=== PATIENT | male | born 1980 | race Caucasian/White ===

== ENCOUNTER 2017-02-28 09:56 | Inpatient (IN) ==
[2017-02-28] MEDS ORDERED: 0.9 % Sodium Chloride 1,000 ML IVC ONE (09:58)
[2017-02-28] MEDS ORDERED: Ondansetron 4 MG/2 ML VIAL IVP ONE ×2 (09:58→10:48)
--- NOTE | 2017-02-28 10:02 | Emergency Department Note ---
Disposition Clinical Impression: Gastroparesis Nausea & vomiting Qualifiers: Vomiting type: unspecified Vomiting Intractability: unspecified Qualified Code( s): R11.2 - Nausea with vomiting, unspecified Disposition: Admitted As Inpatient Condition: Fair Referrals: Alvaro Sexton Jr, MD [Primary Care Provider] - Forms: ED Satisfaction Letter Time of Disposition: 12:11 Nausea/Vomiting/Diarrhea HPI - General Chief complaint: ED Nausea/Vomiting/Diarrhea Stated complaint: N/V Time Seen by Provider: 02/28/17 10:00 Source: patient, EMS Mode of arrival: EMS Limitations: no limitations Nursing Notes Reviewed: Yes Vital Signs Reviewed: Yes - History of Present Illness HPI Narrative: 36-year-old with a history of gastroparesis and diabetes comes in with nausea vomiting not able to keep anything down. Patient states he hasn't had episode like this for a while. Pt Subjective Complaint: nausea, vomiting Onset (ago): Just [employer] Description of emesis: food contents If pain, Location of pain: diffuse Severity: moderate Quality: cramping, aching Consistency: constant Improves with: nothing Worsens with: nonthing Associated symptoms: Denies: cough, fever/chills - Related Data Home Medications Medication Instructions Recorded Confirmed Coreg 01/15/17 Lantus 01/15/17 Losartan 01/15/17 Plavix 01/15/17 Allergies Allergy/AdvReac Type Severity Reaction Status Date / Time Damiblv-Bly-Pol Reductase Allergy Rash Verified 01/15/17 12:02 Inhibitor [Statins] All systems ED: reviewed and negative except as stated. Constitutional: Denies: fever, chills, weakness, weight change Eyes: Denies: eye pain, eye discharge, vision change ENT ED: Denies: ear pain, throat pain, dental pain, hearing loss, epistaxis, congestion, dysphagia Cardiovascular: Denies: chest pain, palpitations, dyspnea on exertion, edema, syncope Respiratory: Denies: cough, dyspnea, wheezes, hemoptysis, stridor Gastrointestinal: Reports: abdominal pain, nausea, vomiting. Denies: diarrhea, constipation, hematemesis, melena, hematochezia Genitourinary: Denies: urgency, dysuria, frequency, hematuria Musculoskeletal: Denies: back pain, neck pain, arthralgia, myalgia Integumentary: Denies: rash, abrasion, lesions Neurological: Denies: headache, weakness, numbness, paresthesias, confusion, abnormal gait, vertigo Psychiatric: Denies: anxiety, depression, suicidal thoughts, homicidal thoughts , auditory hallucinations, visual hallucinations Endocrine: Denies: fatigue Hematological/Lymphatic: Denies: easy bleeding, easy bruising Allergic/Immunologic: Denies: facial swelling, urticaria Past Medical History - Past Medical History Medical history: Reports: hypertension, other - Social History Smoking Status: Never smoker Smokeless Tobacco Status: No Alcohol use: Reports: none Physical Exam - General Limitations: no limitations - Head Head exam: atraumatic, normocephalic, normal inspection - Eye Eye exam: Present: normal appearance, PERRL, EOMI - ENT ENT exam: normal exam, normal oropharynx, mucous membranes moist - Neck Neck exam: Present: normal inspection, full ROM, trachea midline - Chest Chest inspection: Present: normal inspection, symmetric chest wall rise - Respiratory Respiratory exam: Present: normal lung sounds bilaterally - Cardiovascular Cardiovascular exam: Present: regular rate, normal rhythm, normal heart sounds - Abdominal Exam Abdominal exam: Present: soft, tenderness. Absent: guarding, rebound - Extremities Exam Extremities exam: Present: normal inspection, full ROM. Absent: tenderness, pedal edema - Expanded Lower Extremity Exam Neurovascular/Tendon exam: Absent: motor deficit, sensory deficit, tendon deficit Gait: observed and normal - Back Exam Back exam: Present: normal inspection, full ROM. Absent: tenderness - Neurological Exam Neurological exam: Present: alert, oriented X3 - Psychiatric Psychiatric exam: Present: normal affect, normal mood - Skin Skin exam: Present: warm, dry, intact, normal color Course - Reevaluation(s) Reevaluation #1: 76-year-old diabetic with gastroparesis comes in with nausea vomiting. Patient will be admitted for further evaluation and treatment. Time: 13:09 - Consultations Consultation #1: Discussed with , admit. Time: 13:09 Vital Signs Temperature 97.5 F L 02/28/17 09:59 Pulse Rate 96 02/28/17 09:59 Respiratory Rate 22 02/28/17 09:59 Blood Pressure 189/121 02/28/17 09:59 O2 Sat by Pulse Oximetry 96 02/28/17 09:59 Temperature 97.5 F L 02/28/17 09:59 Pulse Rate 108 02/28/17 12:49 Respiratory Rate 16 02/28/17 12:49 Blood Pressure 151/104 02/28/17 12:49 O2 Sat by Pulse Oximetry 100 02/28/17 12:49 Oxygen Delivery Oxygen Delivery Room Air Nausea/Vomiting/Diarrhea - Lab Data Lab results reviewed: Yes I reviewed the patient's lab results. Result diagrams: 02/28/17 10:09 02/28/17 10:09 Lab Results 02/28/17 02/28/17 02/28/17 Range/Units 10:09 10:09 11:45 WBC 17.8 H (4.3-11.1) K/mcL RBC 5.79 H (4.19-5.50) M/mcL Hgb 16.7 (12.9-16.9) g/dL Hct 48.7 (37.5-50.1) % MCV 84.1 (83.0-100.0) fL MCH 28.8 (28.0-33.3) pg MCHC 34.3 (31.6-35.5) g/dL RDW 11.6 (11.5-14.5) % Plt Count 433 H (140-400) K/mcL MPV 9.1 L (9.4-12.4) fL Immature Gran % 0.6 (0-4) % Seg Neutrophils % 86.6 % Lymphocytes % 9.3 % Monocytes % 3.3 % Eosinophils % 0.0 % Basophils % 0.2 % Neutrophils # 15.4 H (1.6-8.9) K/mcL Lymphocytes # 1.7 (0.6-4.6) K/mcL Monocytes # 0.6 (0.0-1.3) K/mcL Eosinophils # 0.0 (0.0-0.6) K/mcL Basophils # 0.0 (0.0-0.2) K/mcL Sodium 134 L (136-145) mEq/L Potassium 4.2 (3.5-4.5) mEq/L Chloride 92 L (98-109) mEq/L Carbon Dioxide 27 (19-29) mEq/L BUN 18 (8-26) mg/dL Creatinine 1.42 H (0.72-1.25) mg/dL Est GFR ( Amer) > 60 (> 60) Est GFR (Non-Af Amer) 56 L (> 60) BUN/Creatinine Ratio 13 (6-26) Glucose 323 H (70-99) mg/dL Calculated Osmolality 292 (280-300) Calcium 11.0 H (8.6-10.8) mg/dL Urine Color Yellow (Yellow) Urine Clarity Hazy (Clear) Urine pH 7.5 (5.0-8.0) pH Units Ur Specific Ashley 1.025 (1.010-1.025) Urine Protein 100 H (Neg-Trace) mg/dL Urine Glucose (UA) >=1000 H (Normal) mg/dL Urine Ketones 40 H (Negative) mg/dL Urine Blood Negative (Negative) Urine Nitrite Negative (Negative) Urine Bilirubin Negative (Negative) Urine Urobilinogen Normal (Normal) mg/dL Ur Leukocyte Esterase Negative (Negative) Urine Microscopic RBC 0-3 (0-3) per hpf Urine Microscopic WBC 0-3 (0-3) per hpf Ur Squamous Epith Cells Few (None-Few) per lpf Urine Bacteria None Seen (None-Few) per hpf Hyaline Casts None Seen (None-Few) per lpf Ur Culture Indicated? NO (NO) - Radiology Data Radiology results reviewed: Yes I reviewed the patient's radiology results. Abdomen/Pelvis CT 02/28/17 09:59 IMPRESSION: 1. Findings suggesting distal esophagitis, mild gastritis, and mild enteritis. No obstruction, perforation, or abscess. This could be infectious versus inflammatory in nature. 2. Bilateral nonobstructing nephrolithiasis. Nonspecific mild right pelvicaliectasis and ureteral distention which may be nonspecific versus possible recently passed calculus. 3. Vascular calcifications with no aortic aneurysm. D/ /28/2017 12:06:20 Mikael Maria MD / karely Interpreting Provider: Mikael Maria MD
[2017-02-28 10:17] LABS: Basophils % 0.2 %; Hematocrit 48.7 % (37.5-50.1); Hemoglobin 16.7 g/dL (12.9-16.9); Immature Granulocytes % 0.6 % (0-4); Lymphocytes # 1.7 K/mcL (0.6-4.6); Lymphocytes % 9.3 %; Mean Corpuscular HGB Conc 34.3 g/dL (31.6-35.5); Mean Corpuscular Hemoglobin 28.8 pg (28.0-33.3); Mean Corpuscular Volume 84.1 fL (83.0-100.0); Mean Platelet Volume 9.1 fL (9.4-12.4); Monocytes # 0.6 K/mcL (0.0-1.3); Monocytes % 3.3 %; Neutrophils # 15.4 K/mcL (1.6-8.9); Platelet Count 433 K/mcL (140-400); Red Blood Count 5.79 M/mcL (4.19-5.50); Red Cell Distribution Width 11.6 % (11.5-14.5); Segmented Neutrophils % 86.6 %
[2017-02-28 10:28] LABS: BUN/Creatinine Ratio 13 (6-26); Blood Urea Nitrogen 18 mg/dL (8-26); Carbon Dioxide 27 mEq/L (19-29); Chloride 92 mEq/L (98-109); Glucose 323 mg/dL (70-99); Osmolality,Calculated 292 (280-300); Potassium 4.2 mEq/L (3.5-4.5); Sodium 134 mEq/L (136-145); eGFR For African Americans > 60 (> 60); eGFR For Non-African Americans 56 (> 60)
[2017-02-28 11:53] LABS: Bilirubin,Urine Negative (Negative); Blood,Urine Negative (Negative); Color,Urine Yellow (Yellow); Glucose,Urine (UA) >=1000 mg/dL (Normal); Ketones,Urine 40 mg/dL (Negative); Leukocyte Esterase,Urine Negative (Negative); Nitrite,Urine Negative (Negative); PH,Urine 7.5 pH Units (5.0-8.0); Protein,Urine 100 mg/dL (Neg-Trace); Specific Gravity,Urine 1.025 (1.010-1.025); Urobilinogen,Urine Normal (Normal)
[2017-02-28 11:55] LABS: Bacteria,Urine None Seen per hpf (None-Few); Hyaline Casts,Urine None Seen per lpf (None-Few); RBC,Urine 0-3 per hpf (0-3); Squamous Epithelial Cell,Urine Few per lpf (None-Few); WBC,Urine 0-3 per hpf (0-3)
[2017-02-28 11:59] LABS: Clarity,Urine Hazy (Clear)
--- NOTE | 2017-02-28 13:49 | Internal Med History&Physical ---
Date of Encounter: 02/28/17 Time of Encounter: 13:11 Assessment and Plan (1) Nausea & vomiting Current visit: Yes Status: Acute Persistent nausea and vomiting in a young 36-year-old male who has a type 1 diabetes mellitus. Noted that patient has a hypochloremic hyponatremia. Elevated creatinine. Patient is hemoconcentrated. Plan: Admit as inpatient. Nothing by mouth. Intravenous normal saline 125 mL/h. Symptomatic treatment for nausea/vomiting. Blood culture. IV antibiotics in terms of ciprofloxacin/Flagyl. Close observation. The patient clinically was the then please consider to call surgery for further evaluation. Qualifiers: Vomiting type: unspecified Vomiting Intractability: unspecified Qualified Code(s): R11.2 - Nausea with vomiting, unspecified (2) Type 1 diabetes mellitus Current visit: Yes Status: Acute We will start the basal dose of insulin. We will give a correction dose in terms of her short-acting insulin. IV fluids for dehydration. Qualifiers: Diabetes mellitus complication status: with unspecified complications Qualified Code(s): E10.8 - Type 1 diabetes mellitus with unspecified complications (3) Gastroparesis Current visit: Yes Status: Acute Patient is advanced gastroparesis. We will keep a close eye on the patient's nausea/vomiting. (4) Hypertension Current visit: Yes Status: Acute Patient is known to have a high blood pressure. At this time I would like to hold or is not hypertensive. Qualifiers: Hypertension type: essential hypertension Qualified Code(s): I10 - Essential (primary) hypertension (5) DVT prophylaxis Current visit: Yes Status: Acute Hep[place]an Current decision making: This patient has a moderate to severe risk of worsening in spite of being on appropriate medication due to the underlying complex medical conditions. Internal Medicine - H&P: HPI Chief complaint: Nausea, vomiting Admitted From: Emergency Dept Plans for Post Hospital Care: Home History of present illness: PCP: Dr. Sexton. Brief PMH: Type 1 diabetes mellitus on insulin, hypertension, hyperlipidemia, gastroperesis. History of present medical illness: Patient is a multiple previous admissions in last 6 months. Today patient comes in with the worsening nausea and vomiting for the past 4 days. Patient has a persistent vomiting which is nonbilious and nonprojectile. Patient claims that he is not able to keep any fluid/solid food for the past 24 hours. Patient's mother is at bedside and she claims that patient is persistently vomiting to the extent that now he has only dry hives. Patient denies chest pain, shortness of breath, abdominal pain, or dizziness or diarrhea. In view of this persistent vomiting and nausea patient came to emergency room for further evaluation. Workup in the emergency room: Patient was evaluated in the emergency room. Basic labs were drawn. It appears as patient is hemoconcentrated. He has a hypochloremic hyponatremia which is suggestive of a dehydration. CT scan of the abdomen is suggestive of enteritis. Reason for admission: Persistent nausea/vomiting in the patient was a gastroparesis with severe dehydration, needs intravenous fluids 125 mL per hour. Family history: Noncontributory Past Med Surg Social Fam HX - Past Medical History Medical history: hypertension, other Psychiatric history: no psych history - Social History Smoking Status: Never smoker Smokeless Tobacco Status: No Alcohol use: none Drug use: marijuana Internal Medicine - H&P: Meds Carvedilol [Coreg] 25 mg PO BID 02/28/17 [History] Clopidogrel [Plavix] 75 mg PO DAILY 02/28/17 [History] Insulin Glargine,Hum.rec.anlog [Lantus Solostar] 8 unit SQ BID 02/28/17 [History ] Losartan Potassium [Cozaar] 100 mg PO DAILY 02/28/17 [History] amLODIPine [Norvasc] 5 mg PO DAILY 02/28/17 [History] 3 Allergy/AdvReac Type Severity Reaction Status Date / Time Jclezwy-Ofq-Pfn Reductase Allergy Rash Verified 01/15/17 12:02 Inhibitor [Statins] All Systems PM: A 10-system review of systems was performed and is negative for pertinent findings except as documented above in the HPI. - Constitutional Constitutional: no chills, no fever(s), no night sweats - EENT Eyes: no change in vision, no discharge, no pain, no photophobia Ears: no ear discharge, no ear pain, no tinnitus Nose, mouth and throat: no dysphagia, no nasal discharge, no neck pain, no sore throat - Cardiovascular Cardiovascular ROS IM: no chest pain, no diaphoresis, no dyspnea, no lightheadedness, no palpitations, no syncope - Respiratory Respiratory: no cough, no dyspnea, no wheezing, no excessive phlegm production - Gastrointestinal Gastrointestinal: bloating, nausea, no abdominal pain, no diarrhea, no hematemesis, no hematochezia, no melena, no vomiting Additional comments: Persistent vomiting - Musculoskeletal Musculoskeletal ROS IM: no numbness, no tingling - Integumentary Integumentary IM: no rash, no unusual bruising - Neurological Neurological ROS: no confusion, no convulsions, no focal weakness, no numbness, no tingling, no tremor(s) - Hematologic/Lymphatic Hematologic/Lymphatic: no easy bruising - Constitutional Vitals: Temp Pulse Resp BP Pulse Ox 97.5 F L 108 16 151/104 100 02/28/17 09:59 02/28/17 12:49 02/28/17 12:49 02/28/17 12:49 02/28/17 12:49 General appearance: Present: A&O X 3, pleasant, no acute distress, answers questions appropriately - Head Head exam: Present: atraumatic, normocephalic - Eye Eye exam: Present: PERRL, conjuntiva pink, sclera anicteric Pupils: Present: PERRL - Neck Neck exam general surgery: Present: supple, trachea midline. Absent: lymphadenopathy - Respiratory Respiratory exam: Present: CTAB. Absent: accessory muscle use, rales, rhonchi, wheezes - Cardiovascular Cardiovascular exam: Present: RRR, +S1, +S2. Absent: diastolic murmur, gallop, rubs, systolic murmur - GI/Abdominal GI/Abdominal exam: Present: normal bowel sounds, soft, no peritoneal signs. Absent: distended, tenderness - Extremities Exam Extremities exam: Present: warm, radial pulses palpable and symmetrical. Absent : calf tenderness, cyanotic, pedal edema - Neurological Exam Neurological exam: Present: CN II-XII intact, oriented X3, no focal deficits. Absent: pronater drift, facial droop, speech deficit - Skin Skin exam: Present: dry, intact Internal Med - H&P Results - Labs CBC & Chem 7: 02/28/17 10:09 02/28/17 10:09 Labs: Short CBC 02/28/17 Range/Units 10:09 WBC 17.8 H (4.3-11.1) K/mcL Hgb 16.7 (12.9-16.9) g/dL Hct 48.7 (37.5-50.1) % Plt Count 433 H (140-400) K/mcL Neutrophils # 15.4 H (1.6-8.9) K/mcL BMP 02/28/17 10:09 Sodium 134 L Potassium 4.2 Chloride 92 L Carbon Dioxide 27 BUN 18 Creatinine 1.42 H Glucose 323 H Calcium 11.0 H Urine 02/28/17 Range/Units 11:45 Urine Color Yellow (Yellow) Urine Clarity Hazy (Clear) Urine pH 7.5 (5.0-8.0) pH Units Ur Specific Adena 1.025 (1.010-1.025) Urine Protein 100 H (Neg-Trace) mg/dL Urine Glucose (UA) >=1000 H (Normal) mg/dL Results discussed with the emergency room physician. - Impressions ITS Impressions Abdomen/Pelvis CT 02/28/17 09:59 IMPRESSION: 1. Findings suggesting distal esophagitis, mild gastritis, and mild enteritis. No obstruction, perforation, or abscess. This could be infectious versus inflammatory in nature. 2. Bilateral nonobstructing nephrolithiasis. Nonspecific mild right pelvicaliectasis and ureteral distention which may be nonspecific versus possible recently passed calculus. 3. Vascular calcifications with no aortic aneurysm. D/ /28/2017 12:06:20 Mikael Maria MD / karely Interpreting Provider: Mikael Maria MD
[2017-02-28] MEDS ORDERED: Naloxone 0.4 MG/ML INJ IVP PRN (13:55)
[2017-02-28] MEDS ORDERED: D5% in Water 1,000 ML IVC PRN (13:58)
[2017-02-28] MEDS ORDERED: Dextrose Gel 15 GM PO PRN ×2 (13:58)
[2017-02-28] MEDS ORDERED: *HR* Dextrose 50 % in Water (Syg) 50 ML SYRINGE IVP PRN (13:58)
[2017-02-28] MEDS: Ondansetron 4 MG/2 ML VIAL IVP SCH ×2 (14:48→20:16)
[2017-02-28] MEDS: MetroNIDAZOLE 500 MG/100 ML 500 MG/100 ML BAG IVPB SCH (14:49)
[2017-02-28] MEDS: 0.9 % Sodium Chloride 1,000 ML IVC SCH (14:49)
[2017-02-28] MEDS: *HR* Heparin 5,000 UNIT/ML VIAL SQ SCH (14:55)
[2017-02-28] MEDS: *HR* Morphine 2 MG/ML SYRINGE IVP PRN ×2 (17:15→22:39)
[2017-02-28] MEDS: Insulin LISPRO 300 UNITS/3 ML VIAL SQ SCH (17:22)
[2017-02-28] MEDS: Acetaminophen 325 MG TABLET PO PRN (20:15)
[2017-02-28] MEDS: Insulin DETEMIR 100 UNIT/ML X5UNITS SQ SCH (20:16)
[2017-02-28] MEDS ORDERED: NON-FORMULARY MEDICATION 1 EACH EACH (Insulin Glargine,Hum.Rec.Anlog [Lantus Solostar] 8 U SQ SCH (21:00)
[2017-03-01] MEDS: Ondansetron 4 MG/2 ML VIAL IVP SCH ×7 (01:03→23:26)
[2017-03-01] MEDS: MetroNIDAZOLE 500 MG/100 ML 500 MG/100 ML BAG IVPB SCH ×4 (01:03→23:25)
[2017-03-01] MEDS: *HR* Heparin 5,000 UNIT/ML VIAL SQ SCH ×4 (01:06→23:26)
[2017-03-01] MEDS: *HR* Morphine 2 MG/ML SYRINGE IVP PRN ×4 (03:50→23:26)
[2017-03-01 05:27] LABS: Basophils % 0.1 %; Hematocrit 39.1 % (37.5-50.1); Lymphocytes # 1.3 K/mcL (0.6-4.6); Lymphocytes % 5.8 %; Mean Corpuscular HGB Conc 33.5 g/dL (31.6-35.5); Mean Corpuscular Volume 86.7 fL (83.0-100.0); Mean Platelet Volume 9.2 fL (9.4-12.4); Monocytes # 1.8 K/mcL (0.0-1.3); Monocytes % 8.3 %; Neutrophils # 18.5 K/mcL (1.6-8.9); Platelet Count 329 K/mcL (140-400); Red Blood Count 4.51 M/mcL (4.19-5.50); Red Cell Distribution Width 11.9 % (11.5-14.5); Segmented Neutrophils % 84.8 %
[2017-03-01 05:30] LABS: Hemoglobin 13.1 g/dL (12.9-16.9)
[2017-03-01 05:34] LABS: INR 1.1
[2017-03-01 05:37] LABS: Activated Partial Thrombo Time 28.4 Seconds (26.0-36.0)
[2017-03-01 05:43] LABS: Alanine Aminotransferase 16 Units/L (0-55); Albumin 3.2 g/dL (3.5-5.0); Albumin/Globulin Ratio 1.1 (1.1-2.2); Alkaline Phosphatase 85 Units/L (38-126); Aspartate Amino Transferase 13 Units/L (5-34); BUN/Creatinine Ratio 20 (6-26); Bilirubin,Total 0.4 mg/dL (0.2-1.2); Blood Urea Nitrogen 23 mg/dL (8-26); Calcium 8.8 mg/dL (8.6-10.8); Carbon Dioxide 27 mEq/L (19-29); Chloride 104 mEq/L (98-109); Chol/HDL Ratio 3.9 (0-4.9); Cholesterol 165 mg/dL (< 200); Glucose 154 mg/dL (70-99); HDL Cholesterol 42 mg/dL (40-59); LDL Cholesterol,Calculated 106 mg/dL (0-99); Magnesium 1.6 mg/dL (1.6-2.6); Osmolality,Calculated 289 (280-300); Phosphorous 3.4 mg/dL (2.3-4.7); Potassium 4.1 mEq/L (3.5-4.5); Sodium 136 mEq/L (136-145); Total Protein 6.2 g/dL (6.0-8.3); Triglycerides 86 mg/dL (< 150); eGFR For African Americans > 60 (> 60); eGFR For Non-African Americans > 60 (> 60)
[2017-03-01] MEDS ORDERED: GI Cocktail 40 ML EACH PO PRN (07:56)
[2017-03-01] MEDS: Insulin LISPRO 300 UNITS/3 ML VIAL SQ SCH ×3 (08:03→19:48)
[2017-03-01] MEDS: Insulin DETEMIR 100 UNIT/ML X5UNITS SQ SCH ×2 (09:10→20:40)
[2017-03-01] MEDS: Acetaminophen 325 MG TABLET PO PRN ×2 (12:14→20:39)
[2017-03-01] MEDS: Metoclopramide 10 MG/2 ML VIAL IVP SCH ×3 (12:14→23:26)
[2017-03-01] MEDS: Sucralfate 1 GM TABLET PO SCH ×3 (12:14→23:25)
--- NOTE | 2017-03-01 14:25 | Internal Med Progress Note ---
Date of Encounter: 03/01/17 Time of Encounter: 09:50 - Assessment and plan (1) Enteritis Current Visit: Yes Status: Acute Assessment and plan: Patient not having any diarrhea at this time. Treated empirically with antibiotics. Start clear liquids. Pain control. IV fluids. High risk for complications due to use of intravenous narcotic medications to control pain (2) Nausea & vomiting Current Visit: Yes Status: Acute Assessment and plan: Intractable. Most likely due to acute worsening of gastroparesis. Will place patient on Reglan at scheduled doses. Continue Carafate and will also add omeprazole Qualifiers: Vomiting type: cyclical vomiting Vomiting Intractability: intractable Qualified Code(s): G43.A1 - Cyclical vomiting, intractable (3) Gastroparesis Current Visit: Yes Status: Acute Assessment and plan: Will treat with Reglan (4) Type 1 diabetes mellitus Current Visit: Yes Status: Acute Assessment and plan: Improved blood sugars. Continue insulin coverage with Levemir and sliding scale Qualifiers: Diabetes mellitus complication status: with unspecified complications Qualified Code(s): E10.8 - Type 1 diabetes mellitus with unspecified complications (5) DVT prophylaxis Current Visit: Yes Status: Acute Assessment and plan: With subcutaneous heparin (6) Hypertension Current Visit: Yes Status: Chronic Assessment and plan: Uncontrolled. We will resume home medications. If persistently elevated, we will place patient on intravenous hydralazine as needed for systolic blood pressure greater than 160 Qualifiers: Hypertension type: essential hypertension Qualified Code(s): I10 - Essential (primary) hypertension - Subjective Interval history: Patient is lying in bed. Complains of continued nausea but it seems to be improving slowly. Wants to try liquid diet today. Denies any epigastric pain but does have some right upper quadrant pain this morning. Cramping type. No diarrhea. No hematochezia. - Constitutional Vitals: Temp Pulse Resp BP Pulse Ox 98.4 F 89 16 167/95 98 03/01/17 07:50 03/01/17 07:50 03/01/17 07:50 03/01/17 07:50 03/01/17 07:50 General appearance: Present: mild distress, A&O X 3, pleasant, answers questions appropriately - Respiratory Respiratory exam: Present: CTAB. Absent: accessory muscle use, rales, rhonchi, wheezes - Cardiovascular Cardiovascular exam: Present: RRR, +S1, +S2. Absent: diastolic murmur, gallop, rubs, systolic murmur - GI/Abdominal GI/Abdominal exam: Present: normal bowel sounds, soft, tenderness (Right upper and lower quadrants), no peritoneal signs. Absent: distended - Extremities Exam Extremities exam: Present: warm, radial pulses palpable and symmetrical. Absent : calf tenderness, cyanotic, pedal edema - Neurological Exam Neurological exam: Present: alert, oriented X3, no focal deficits. Absent: facial droop, speech deficit - Skin Skin exam: Present: dry, intact Internal Medicine: Result - Labs CBC & Chem 7: 03/01/17 05:08 03/01/17 05:08 Labs: Short CBC 03/01/17 Range/Units 05:08 WBC 21.8 H (4.3-11.1) K/mcL Hgb 13.1 D (12.9-16.9) g/dL Hct 39.1 (37.5-50.1) % Plt Count 329 (140-400) K/mcL Neutrophils # 18.5 H (1.6-8.9) K/mcL BMP 03/01/17 05:08 Sodium 136 Potassium 4.1 Chloride 104 Carbon Dioxide 27 BUN 23 Creatinine 1.13 Glucose 154 H Calcium 8.8 D Liver Function 03/01/17 Range/Units 05:08 Total Bilirubin 0.4 (0.2-1.2) mg/dL AST 13 (5-34) Units/L ALT 16 (0-55) Units/L Alkaline Phosphatase 85 (38-126) Units/L Albumin 3.2 L (3.5-5.0) g/dL - ABG Interpretation ABG results: PT/INR, D-dimer PT 12.0 Seconds (9.4-12.1) 03/01/17 05:08 Consult Discharge Plan - Plan Referrals: Alvaro Sexton Jr, MD [Primary Care Provider] -
--- NOTE | 2017-03-01 18:12 | Electrocardiograph Report ---
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
[2017-03-01] MEDS: 0.9 % Sodium Chloride 1,000 ML IVC SCH (19:48)
[2017-03-01] MEDS ORDERED: Insulin LISPRO 300 UNITS/3 ML VIAL SQ SCH (21:00)
[2017-03-02] MEDS: Ondansetron 4 MG/2 ML VIAL IVP SCH ×4 (03:27→16:42)
[2017-03-02] MEDS: Metoclopramide 10 MG/2 ML VIAL IVP SCH (05:07)
[2017-03-02] MEDS: *HR* Morphine 2 MG/ML SYRINGE IVP PRN (05:09)
[2017-03-02] MEDS: Insulin LISPRO 300 UNITS/3 ML VIAL SQ SCH ×2 (08:17→12:27)
[2017-03-02] MEDS: Acetaminophen 325 MG TABLET PO PRN ×2 (08:29→16:44)
[2017-03-02] MEDS: Sucralfate 1 GM TABLET PO SCH ×3 (08:29→16:44)
[2017-03-02] MEDS: Insulin DETEMIR 100 UNIT/ML X5UNITS SQ SCH (08:29)
[2017-03-02] MEDS: MetroNIDAZOLE 500 MG/100 ML 500 MG/100 ML BAG IVPB SCH ×2 (08:30→16:44)
[2017-03-02] MEDS: *HR* Heparin 5,000 UNIT/ML VIAL SQ SCH ×2 (08:30→18:08)
[2017-03-02] MEDS ORDERED: amLODIPine 5 MG TABLET PO SCH (09:00)
[2017-03-02 09:16] LABS: Basophils % 0.3 %; Eosinophils % 0.3 %; Hematocrit 39.7 % (37.5-50.1); Hemoglobin 13.1 g/dL (12.9-16.9); Immature Granulocytes % 0.6 % (0-4); Lymphocytes # 1.6 K/mcL (0.6-4.6); Lymphocytes % 12.7 %; Mean Platelet Volume 9.1 fL (9.4-12.4); Monocytes # 1.1 K/mcL (0.0-1.3); Monocytes % 8.2 %; Platelet Count 263 K/mcL (140-400); Red Blood Count 4.51 M/mcL (4.19-5.50); Red Cell Distribution Width 11.7 % (11.5-14.5); Segmented Neutrophils % 77.9 %
[2017-03-02 09:28] LABS: BUN/Creatinine Ratio 13 (6-26); Blood Urea Nitrogen 13 mg/dL (8-26); Calcium 8.8 mg/dL (8.6-10.8); Carbon Dioxide 28 mEq/L (19-29); Chloride 98 mEq/L (98-109); Glucose 143 mg/dL (70-99); Osmolality,Calculated 277 (280-300); Potassium 3.6 mEq/L (3.5-4.5); Sodium 132 mEq/L (136-145); eGFR For African Americans > 60 (> 60); eGFR For Non-African Americans > 60 (> 60)
[2017-03-02 12:16] VITALS: BP 138/86
--- NOTE | 2017-03-02 13:41 | Discharge Summary ---
Date of Encounter: 03/02/17 Time of Encounter: 13:36 - Discharge Diagnosis (1) Enteritis Priority: Primary Status: Acute (2) Nausea & vomiting Priority: Secondary Status: Acute Qualifiers: Vomiting type: cyclical vomiting Vomiting Intractability: intractable Qualified Code(s): G43.A1 - Cyclical vomiting, intractable (3) Gastroparesis Priority: Secondary Status: Acute (4) Type 1 diabetes mellitus Priority: Secondary Status: Acute Qualifiers: Diabetes mellitus complication status: with unspecified complications Qualified Code(s): E10.8 - Type 1 diabetes mellitus with unspecified complications (5) DVT prophylaxis Priority: Secondary Status: Acute (6) Hypertension Priority: Secondary Status: Chronic Qualifiers: Hypertension type: essential hypertension Qualified Code(s): I10 - Essential (primary) hypertension - Discharge Medications Prescriptions: Ciprofloxacin [Cipro] 500 mg PO BID #8 tablet Metoclopramide [Reglan] 10 mg PO QIDAC #40 tablet metroNIDAZOLE [Flagyl] 500 mg PO TID #12 tablet Pantoprazole Sodium 20 mg PO BID #60 tablet. Sucralfate [Carafate] 1 gm PO QIDAC #120 tablet Home Medications: Carvedilol [Coreg] 25 mg PO BID 02/28/17 [History] Clopidogrel [Plavix] 75 mg PO DAILY 02/28/17 [History] Insulin Glargine,Hum.rec.anlog [Lantus Solostar] 8 unit SQ BID 02/28/17 [History ] Losartan Potassium [Cozaar] 100 mg PO DAILY 02/28/17 [History] amLODIPine [Norvasc] 5 mg PO DAILY 02/28/17 [History] Ciprofloxacin [Cipro] 500 mg PO BID #8 tablet 03/02/17 [Rx] Metoclopramide [Reglan] 10 mg PO QIDAC #40 tablet 03/02/17 [Rx] Pantoprazole Sodium 20 mg PO BID #60 tablet. 03/02/17 [Rx] Sucralfate [Carafate] 1 gm PO QIDAC #120 tablet 03/02/17 [Rx] metroNIDAZOLE [Flagyl] 500 mg PO TID #12 tablet 03/02/17 [Rx] Allergies/Adverse Reactions: 3 Allergy/AdvReac Type Severity Reaction Status Date / Time Hmakxpe-Qco-Bqj Reductase Allergy Rash Verified 01/15/17 12:02 Inhibitor [Statins] Procedures/tests Complete & Pending: Procedures Performed prior 72 hours Category Date Time Status ECG 12 lead ECG [ECG] Routine Y 02/28/17 16:43 Completed Date of admission: 02/28/17 13:55 Primary care physician: Alvaro Sexton Jr, MD Discharging clinician: Cora Lerma Anticipated date of discharge: 03/02/17 - Patient Status Disposition: Home, Self-Care Condition: Good Functional capacity at discharge: independent ambulation Overall status at discharge: patient is progressing back to baseline - Discharge Instructions Instructions: Diabetes Mellitus Type 2 in Adults (DC) Follow Up With: Alvaro Sexton Jr, MD [Primary Care Provider] - (in 1-2 weeks) - Diet and Activity Activity: increase activity as tolerated Diet: diabetic diet, low fat, low cholesterol, low salt diet Hospital course: Mr. Santamaria is a 36 year old male patient with a history of type 1 diabetes mellitus and diabetic gastroparesis who presented to the ER with complaints of intractable nausea and vomiting. CT scan in the ER showed presence of distal esophagitis, mild gastritis and mild enteritis. Patient was started on treatment for this with PPI and Carafate along with intravenous antibiotics. For his diabetic gastroparesis, he was placed on Reglan. With these medications , his symptoms improved is now doing much better and is tolerating full liquids well. He is clinically stable for discharge home as long as he is able to continue to tolerate diet. He will be discharged on Reglan, pantoprazole and Carafate. He will follow-up with his primary care provider for further management. He will also complete a 5 day course of antibiotics. - Time Spent with Patient Total time spent providing and/or coordinating discharge services: Less than 30 minutes (35 min) - Constitutional Vitals: Temp Pulse Resp BP Pulse Ox 98.8 F 78 18 138/86 100 03/02/17 12:11 03/02/17 12:11 03/02/17 12:11 03/02/17 12:11 03/02/17 12:11 General appearance: Present: mild distress, A&O X 3, pleasant, answers questions appropriately - Neck Neck exam general surgery: Present: supple, trachea midline. Absent: lymphadenopathy - Respiratory Respiratory exam: Present: CTAB. Absent: accessory muscle use, rales, rhonchi, wheezes - Cardiovascular Cardiovascular exam: Present: RRR, +S1, +S2. Absent: diastolic murmur, gallop, rubs, systolic murmur - Neurological Exam Neurological exam: Present: alert, oriented X3, no focal deficits. Absent: facial droop, speech deficit
== END 2017-03-02 19:00 | disposition home or self-care (01) | DRG 392 ==
LOC: 3ANU 09:56 → EMEROO 09:56 → 3ANU 14:10
PROVIDERS: ADMIT Internal Medicine; ATTEND Internal Medicine

== ENCOUNTER 2018-01-14 09:08 | Inpatient (IN) ==
[2018-01-14] MEDS ORDERED: 0.9 % Sodium Chloride 1,000 ML IVC ONE (09:13)
[2018-01-14] MEDS ORDERED: Ondansetron 4 MG/2 ML VIAL IVP ONE (09:13)
[2018-01-14] MEDS ORDERED: Metoclopramide 10 MG/2 ML VIAL IVP ONE (09:15)
--- NOTE | 2018-01-14 09:19 | Emergency Department Note ---
Disposition Clinical Impression: Upper GI bleed, Severe anemia Hematemesis Qualifiers: Nausea presence: with nausea Qualified Code(s): K92.0 - Hematemesis Disposition: Admitted As Inpatient Condition: Fair Referrals: Alvaro Sexton Jr, MD [Primary Care Provider] - Forms: ED Satisfaction Letter Time of Disposition: 11:44 General Adult HPI - General Chief complaint: ED Nausea/Vomiting/Diarrhea Stated complaint: High Sugar Time Seen by Provider: 01/14/18 09:13 Source: patient, EMS Mode of arrival: EMS Limitations: no limitations - History of Present Illness HPI Narrative: This is a 37-year-old male who has a long-term diabetic who is been unable to control his blood sugar last few days. He is brought in by EMS because of that and because of vomiting. He states the vomiting began more than 12 hours prior to arrival, and that he has had 3 or 4 vomiting. He is vomiting on arrival. EMS squad states that he also appears quite pale compared to normal. He denies abdominal pain except during vomiting. He denies constipation or diarrhea. His emesis appears to be coffee ground, and EMS states that his said that he has emesis was dark. - Related Data Home Medications Medication Instructions Recorded Confirmed Carvedilol [Coreg] 25 mg PO BID 02/28/17 02/28/17 Clopidogrel [Plavix] 75 mg PO DAILY 02/28/17 02/28/17 Insulin Glargine,Hum.rec.anlog 8 unit SQ BID 02/28/17 02/28/17 [Lantus Solostar] Losartan Potassium [Cozaar] 100 mg PO DAILY 02/28/17 02/28/17 amLODIPine [Norvasc] 5 mg PO DAILY 02/28/17 02/28/17 Previous Rx's Medication Instructions Recorded Ciprofloxacin [Cipro] 500 mg PO BID #8 tablet 03/02/17 Metoclopramide [Reglan] 10 mg PO QIDAC #40 tablet 03/02/17 Pantoprazole Sodium 20 mg PO BID #60 tablet. 03/02/17 Sucralfate [Carafate] 1 gm PO QIDAC #120 tablet 03/02/17 metroNIDAZOLE [Flagyl] 500 mg PO TID #12 tablet 03/02/17 Allergies Allergy/AdvReac Type Severity Reaction Status Date / Time Fqtqenq-[id number]-Xpc Reductase Allergy Rash Verified 12/01/17 16:08 Inhibitor [Statins] All systems ED: reviewed and negative except as stated. Gastrointestinal: Reports: nausea, vomiting, hematemesis. Denies: diarrhea, constipation Past Medical History - Past Medical History Medical history: Reports: diabetes, hypertension, other Psychiatric history: Reports: no psych history - Social History Smoking Status: Never smoker Smokeless Tobacco Status: No Alcohol use: Reports: none Drug use: Reports: marijuana Physical Exam - General Limitations: no limitations General appearance: alert, in distress (In mild distress from vomiting) - Head Head exam: atraumatic, normocephalic, normal inspection - Eye Eye exam: Present: normal appearance - Chest Chest inspection: Present: normal inspection, symmetric chest wall rise - Respiratory Respiratory exam: Present: normal lung sounds bilaterally - Cardiovascular Cardiovascular exam: Present: normal rhythm, tachycardia, normal heart sounds - Abdominal Exam Abdominal exam: Present: soft, Non-Tender. Absent: tenderness, distention, guarding, rebound, rigidity - Neurological Exam Neurological exam: Present: alert, oriented X3 - Psychiatric Psychiatric exam: Present: normal affect, normal mood - Skin Skin exam: Present: warm, dry, intact, normal color Course Course Narrative: This is a pale 37-year-old male who appears to have hematemesis. Evaluation is concerning for upper GI bleed. Vital Signs Temperature 99.0 F 01/14/18 09:14 Pulse Rate 132 01/14/18 09:14 Respiratory Rate 18 01/14/18 09:14 Blood Pressure 122/100 01/14/18 09:14 O2 Sat by Pulse Oximetry 100 01/14/18 09:14 Temperature 99.4 F 01/14/18 11:40 Pulse Rate 105 01/14/18 11:40 Respiratory Rate 14 01/14/18 11:40 Blood Pressure 110/77 01/14/18 11:40 O2 Sat by Pulse Oximetry 100 01/14/18 11:26 Oxygen Delivery Oxygen Delivery Room Air Medical Decision Making - MDM Narrative Medical decision making narrative: This is a 29-year-old male nausea and vomiting apparently secondary to upper GI bleeding. The lab called to report a hemoglobin 5.1, which I immediately ordered 2 units of packed red blood cells. I discussed with the patient the option of receiving a blood transfusion, and he agreed. IV fluid was given because of tachycardia 10 units of insulin was given because of hyperglycemia, although there is no evidence of DKA given his normal bicarbonate I discussed his case with the on-call hospitalist, who accepted him for admission to the ICU - Lab Data Lab results reviewed: Yes I reviewed the patient's lab results. Lab results narrative: CBC shows leukocytosis at 17.2 with anemia at 5.114.9, normal platelets at 300 BMP showed hyponatremia at 129 with an elevated BUN of 39 and normal bicarbonate 24 Beta hydroxybutyrate was elevated at 0.96 Result diagrams: 01/14/18 09:31 01/14/18 09:31 Lab Results 01/14/18 01/14/18 01/14/18 Range/Units 09:31 09:31 09:31 WBC 17.2 H (4.3-11.1) K/mcL RBC 1.71 L (4.19-5.50) M/mcL Hgb 5.1 L* (12.9-16.9) g/dL Hct 14.9 L* (37.5-50.1) % MCV 87.1 (83.0-100.0) fL MCH 29.8 (28.0-33.3) pg MCHC 34.2 (31.6-35.5) g/dL RDW 12.2 (11.5-14.5) % Plt Count 300 (140-400) K/mcL MPV 9.8 (9.4-12.4) fL Immature Gran % 0.8 (0-4) % Seg Neutrophils % 81.8 % Lymphocytes % 13.1 % Monocytes % 4.0 % Eosinophils % 0.1 % Basophils % 0.2 % Neutrophils # 14.1 H (1.6-8.9) K/mcL Lymphocytes # 2.3 (0.6-4.6) K/mcL Monocytes # 0.7 (0.0-1.3) K/mcL Eosinophils # 0.0 (0.0-0.6) K/mcL Basophils # 0.0 (0.0-0.2) K/mcL Platelet Estimate Normal (Normal) Polychromasia 1+ A (Not Present) Poikilocytosis 1+ A (Not Present) Sodium 129 L (136-145) mEq/L Potassium 4.7 (3.5-5.1) mEq/L Chloride 98 (98-107) mEq/L Carbon Dioxide 24 (23-29) mEq/L BUN 39 H (6-20) mg/dL Creatinine 1.16 (0.70-1.30) mg/dL Est GFR ( Amer) > 60 (> 60) Est GFR (Non-Af Amer) > 60 (> 60) BUN/Creatinine Ratio 34 H (6-26) Glucose 451 H (70-105) mg/dL Calculated Osmolality 297 (280-300) Calcium 8.3 L (8.6-10.3) mg/dL Total Bilirubin 0.3 (0.3-1.0) mg/dL AST 12 L (13-39) Units/L ALT 11 (7-52) Units/L Alkaline Phosphatase 51 (34-104) Units/L Troponin I < 0.03 (< 0.04) ng/mL Serum Total Protein 5.1 L (6.4-8.9) g/dL Albumin 3.5 (3.5-5.7) g/dL Globulin 1.6 L (2.4-3.5) g/dL Albumin/Globulin Ratio 2.2 (1.1-2.2) Beta-Hydroxybutyric Acd 0.96 H (0.02-0.27) mmol/L Urine Color (Yellow) Urine Clarity (Clear) Urine pH (5.0-8.0) pH Units Ur Specific [place] (1.010-1.025) Urine Protein (Neg-Trace) mg/dL Urine Glucose (UA) (Normal) mg/dL Urine Ketones (Negative) mg/dL Urine Blood (Negative) Urine Nitrite (Negative) Urine Bilirubin (Negative) Urine Urobilinogen (Normal) mg/dL Ur Leukocyte Esterase (Negative) Urine Microscopic RBC (0-3) per hpf Urine Microscopic WBC (0-3) per hpf Ur Squamous Epith Cells (None-Few) per lpf Urine Bacteria (None-Few) per hpf Hyaline Casts (None-Few) per lpf Ur Culture Indicated? (NO) Blood Type Antibody Screen Crossmatch 01/14/18 01/14/18 Range/Units 09:31 10:37 WBC (4.3-11.1) K/mcL RBC (4.19-5.50) M/mcL Hgb (12.9-16.9) g/dL Hct (37.5-50.1) % MCV (83.0-100.0) fL MCH (28.0-33.3) pg MCHC (31.6-35.5) g/dL RDW (11.5-14.5) % Plt Count (140-400) K/mcL MPV (9.4-12.4) fL Immature Gran % (0-4) % Seg Neutrophils % % Lymphocytes % % Monocytes % % Eosinophils % % Basophils % % Neutrophils # (1.6-8.9) K/mcL Lymphocytes # (0.6-4.6) K/mcL Monocytes # (0.0-1.3) K/mcL Eosinophils # (0.0-0.6) K/mcL Basophils # (0.0-0.2) K/mcL Platelet Estimate (Normal) Polychromasia (Not Present) Poikilocytosis (Not Present) Sodium (136-145) mEq/L Potassium (3.5-5.1) mEq/L Chloride (98-107) mEq/L Carbon Dioxide (23-29) mEq/L BUN (6-20) mg/dL Creatinine (0.70-1.30) mg/dL Est GFR ( Amer) (> 60) Est GFR (Non-Af Amer) (> 60) BUN/Creatinine Ratio (6-26) Glucose (70-105) mg/dL Calculated Osmolality (280-300) Calcium (8.6-10.3) mg/dL Total Bilirubin (0.3-1.0) mg/dL AST (13-39) Units/L ALT (7-52) Units/L Alkaline Phosphatase (34-104) Units/L Troponin I (< 0.04) ng/mL Serum Total Protein (6.4-8.9) g/dL Albumin (3.5-5.7) g/dL Globulin (2.4-3.5) g/dL Albumin/Globulin Ratio (1.1-2.2) Beta-Hydroxybutyric Acd (0.02-0.27) mmol/L Urine Color Yellow (Yellow) Urine Clarity Clear (Clear) Urine pH 6.0 (5.0-8.0) pH Units Ur Specific [place] <= 1.005 L (1.010-1.025) Urine Protein Negative (Neg-Trace) mg/dL Urine Glucose (UA) 500 H (Normal) mg/dL Urine Ketones 15 H (Negative) mg/dL Urine Blood Small H (Negative) Urine Nitrite Negative (Negative) Urine Bilirubin Negative (Negative) Urine Urobilinogen Normal (Normal) mg/dL Ur Leukocyte Esterase Negative (Negative) Urine Microscopic RBC 0-3 (0-3) per hpf Urine Microscopic WBC 0-3 (0-3) per hpf Ur Squamous Epith Cells None Seen (None-Few) per lpf Urine Bacteria None Seen (None-Few) per hpf Hyaline Casts None Seen (None-Few) per lpf Ur Culture Indicated? NO (NO) Blood Type O POSITIVE Antibody Screen NEGATIVE Crossmatch See Detail - EKG Data EKG #1 EKG attestation: Yes I reviewed and interpreted this EKG. EKG results narrative: ECG showed sinus tachycardia, 115 bpm, normal intervals, normal axis and normal ST and T waves, similar to prior dated 12/01/2017 Critical Care Time Critical Care Time: Yes Total Critical Care Time: 30 Attestation: 20 minutes of critical care time was invested independent of separately billable procedures
[2018-01-14 09:44] LABS: Basophils % 0.2 %; Eosinophils % 0.1 %
[2018-01-14 09:52] LABS: Mean Corpuscular HGB Conc 34.2 g/dL (31.6-35.5); Mean Corpuscular Hemoglobin 29.8 pg (28.0-33.3); Mean Corpuscular Volume 87.1 fL (83.0-100.0); Red Blood Count 1.71 M/mcL (4.19-5.50)
[2018-01-14 09:54] LABS: Immature Granulocytes % 0.8 % (0-4); Lymphocytes # 2.3 K/mcL (0.6-4.6); Lymphocytes % 13.1 %; Mean Platelet Volume 9.8 fL (9.4-12.4); Monocytes # 0.7 K/mcL (0.0-1.3); Platelet Count 300 K/mcL (140-400); Red Cell Distribution Width 12.2 % (11.5-14.5); Segmented Neutrophils % 81.8 %
[2018-01-14 09:58] LABS: Alanine Aminotransferase 11 Units/L (7-52); Albumin 3.5 g/dL (3.5-5.7); Albumin/Globulin Ratio 2.2 (1.1-2.2); Alkaline Phosphatase 51 Units/L (34-104); Aspartate Amino Transferase 12 Units/L (13-39); BUN/Creatinine Ratio 34 (6-26); Bilirubin,Total 0.3 mg/dL (0.3-1.0); Blood Urea Nitrogen 39 mg/dL (6-20); Calcium 8.3 mg/dL (8.6-10.3); Carbon Dioxide 24 mEq/L (23-29); Chloride 98 mEq/L (98-107); Globulin 1.6 g/dL (2.4-3.5); Glucose 451 mg/dL (70-105); Osmolality,Calculated 297 (280-300); Potassium 4.7 mEq/L (3.5-5.1); Sodium 129 mEq/L (136-145); Total Protein 5.1 g/dL (6.4-8.9); eGFR For Non-African Americans > 60 (> 60)
[2018-01-14 10:00] LABS: Neutrophils # 14.1 K/mcL (1.6-8.9)
[2018-01-14 10:10] LABS: Hematocrit 14.9 % (37.5-50.1); Hemoglobin 5.1 g/dL (12.9-16.9)
[2018-01-14] MEDS ORDERED: Pantoprazole 40 MG VIAL IVP ONE ×2 (10:16→12:45)
[2018-01-14 10:21] LABS: Platelet Estimate Normal (Normal); Poikilocytosis 1+ (Not Present); Polychromasia 1+ (Not Present)
[2018-01-14 10:42] LABS: Bilirubin,Urine Negative (Negative); Blood,Urine Small (Negative); Clarity,Urine Clear (Clear); Color,Urine Yellow (Yellow); Glucose,Urine (UA) 500 mg/dL (Normal); Ketones,Urine 15 mg/dL (Negative); Leukocyte Esterase,Urine Negative (Negative); Nitrite,Urine Negative (Negative); Protein,Urine Negative (Neg-Trace); Specific Gravity,Urine <= 1.005 (1.010-1.025); Urobilinogen,Urine Normal (Normal)
[2018-01-14 10:45] LABS: Bacteria,Urine None Seen per hpf (None-Few); Hyaline Casts,Urine None Seen per lpf (None-Few); RBC,Urine 0-3 per hpf (0-3); Squamous Epithelial Cell,Urine None Seen per lpf (None-Few); WBC,Urine 0-3 per hpf (0-3)
[2018-01-14] MEDS ORDERED: Insulin Human Regular 10 UNIT in 0.9 % Sodium Chloride 10 ML IV ONE (11:02)
[2018-01-14] MEDS ORDERED: 0.9 % Sodium Chloride 250 ML ONE ×2 (11:13→22:38)
[2018-01-14] MEDS: Pantoprazole 40 MG in 0.9 % Sodium Chloride Mini Bag 100 ML IVC SCH ×3 (11:18→21:18)
[2018-01-14 11:22] LABS: Troponin I < 0.03 ng/mL (< 0.04)
[2018-01-14] MEDS ORDERED: Naloxone 0.4 MG/ML INJ IVP PRN (12:31)
--- NOTE | 2018-01-14 13:02 | General Surgery Consult Note ---
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 Pylori Plan for EGD after resuscitation with Dr. Chacko- 01/15/18 Surgery will continue to follow and assess progress Qualifiers: Nausea presence: with nausea Qualified Code(s): K92.0 - Hematemesis History of Present Illness Consult date: 01/14/18 Reason for consult: other (UGI bleed) Requesting physician: Croa Lerma History of present illness: Mr. Santamaria is a 37 year old male with a history of type 1 insulin dependent diabetes. He presented to the ED this morning with complaints of elevated blood sugars. Blood sugar on arrival was 474. The patient also reports 4 episodes of coffee ground emesis which started 3 days ago. He is legally blind but lives with his girlfriend who reports coffee ground emesis. He admits to occasional heartburn. Denies any abdominal pain. Denies diarrhea but admits to occasional constipation which is chronic. He typically has a bowel movement every morning. Unsure of the color of his stool. He admits to chronic shortness of breath. Denies any chest pains. Admits to fatigue. Denies any syncopal episodes. Admits to alternating fevers/chills. He sates that he was treated for strep throat last week and that he finished his antibiotics yesterday. Denies any use of ibuprofen or blood thinners. Denies any alcohol use. He has never had endoscopy procedures in the past. His hemoglobin on presentation is 5.1 and his HR is in the 110's. He is currently being transfused with 2 units of PRBC. We have been asked to see and evaluate the patient for endoscopic evaluation. Past Med Surg Social Fam HX - Past Medical History Source: patient, old records reviewed Medical history: diabetes (Type 1 insulin dependent), hyperlipidemia, hypertension, other Additional medical history: gastroparesis, legally blind, cataracts left eye Psychiatric history: no psych history - Past Surgical History Surgical History: angioplasty/stent (2009) Additional surgical history: eye surgeries x4, insulin pump - Social History Smoking Status: Never smoker Smokeless Tobacco Status: No Alcohol use: none Drug use: marijuana (occasional) Current living situation: Home - Independent Activity Level: Independent ambulation Medications and Allergies Carvedilol [Coreg] 25 mg PO BID 02/28/17 [History] Clopidogrel [Plavix] 75 mg PO DAILY 02/28/17 [History] Insulin Glargine,Hum.rec.anlog [Lantus Solostar] 8 unit SQ BID 02/28/17 [History ] Losartan Potassium [Cozaar] 100 mg PO DAILY 02/28/17 [History] amLODIPine [Norvasc] 5 mg PO DAILY 02/28/17 [History] Metoclopramide [Reglan] 10 mg PO QIDAC #40 tablet 03/02/17 [Rx] Buspirone HCl [Buspar] 15 mg PO DAILY 01/14/18 [History] Insulin LISPRO [Humalog] 70 unit SQ DAILY 01/14/18 [History] Rosuvastatin Calcium [Rosuvastatin Calcium] 10 mg PO DAILY 01/14/18 [History] 3 Allergy/AdvReac Type Severity Reaction Status Date / Time Wypnnfu-[id number]-Snr Reductase AdvReac Rash Verified 01/14/18 12:40 Inhibitor [Statins] Review of Systems All systems PM: reviewed and no additional remarkable complaints except as stated (in the HPI) All systems PM: The remainder of the systems were reviewed and are negative General Surgery Exam Initial Vital Signs Temp Pulse Resp BP Pulse Ox 99.0 F 132 18 122/100 100 01/14/18 09:14 01/14/18 09:14 01/14/18 09:14 01/14/18 09:14 01/14/18 09:14 - General physical appearance well nourished, no distress, no pain, chronically ill - Eyes PERRL - ENT dry mucosa, atraumatic, normocephalic - Neck trachea midline - Respiratory normal respiratory effort, clear to auscultation - Cardiovascular Cardiovascular exam: Present: tachycardia - Abdomen Abdomen general surgery: Present: bowel sounds present, soft, non tender - Integumentary Integumentary general surgery: Present: warm and dry - Neurologic Present: CN 2-12 grossly intact - Psychiatric Psychiatric general surgery: Present: appropriate, oriented to person, oriented to place, oriented to time, speech is normal, memory intact Exam Initial Vital Signs Temp Pulse Resp BP Pulse Ox 99.0 F 132 18 122/100 100 01/14/18 09:14 01/14/18 09:14 01/14/18 09:14 01/14/18 09:14 01/14/18 09:14 Results - Labs 01/14/18 09:31 01/14/18 09:31 Abnormal lab results WBC 17.2 K/mcL (4.3-11.1) H 01/14/18 09:31 RBC 1.71 M/mcL (4.19-5.50) L 01/14/18 09:31 Hgb 5.1 g/dL (12.9-16.9) L* 01/14/18 09:31 Hct 14.9 % (37.5-50.1) L* 01/14/18 09:31 Neutrophils # 14.1 K/mcL (1.6-8.9) H 01/14/18 09:31 Polychromasia 1+ (Not Present) A 01/14/18 09:31 Poikilocytosis 1+ (Not Present) A 01/14/18 09:31 Sodium 129 mEq/L (136-145) L 01/14/18 09:31 BUN 39 mg/dL (6-20) H 01/14/18 09:31 BUN/Creatinine Ratio 34 (6-26) H 01/14/18 09:31 Glucose 451 mg/dL (70-105) H 01/14/18 09:31 Calcium 8.3 mg/dL (8.6-10.3) L 01/14/18 09:31 AST 12 Units/L (13-39) L 01/14/18 09:31 Serum Total Protein 5.1 g/dL (6.4-8.9) L 01/14/18 09:31 Globulin 1.6 g/dL (2.4-3.5) L 01/14/18 09:31 Beta-Hydroxybutyric Acd 0.96 mmol/L (0.02-0.27) H 01/14/18 09:31 Ur Specific [place] <= 1.005 (1.010-1.025) L 01/14/18 10:37 Urine Glucose (UA) 500 mg/dL (Normal) H 01/14/18 10:37 Urine Ketones 15 mg/dL (Negative) H 01/14/18 10:37 Urine Blood Small (Negative) H 01/14/18 10:37 Diabetes panel 01/14/18 Range/Units 09:31 Sodium 129 L (136-145) mEq/L Potassium 4.7 (3.5-5.1) mEq/L Chloride 98 (98-107) mEq/L Carbon Dioxide 24 (23-29) mEq/L BUN 39 H (6-20) mg/dL Creatinine 1.16 (0.70-1.30) mg/dL Glucose 451 H (70-105) mg/dL Calcium 8.3 L (8.6-10.3) mg/dL AST 12 L (13-39) Units/L ALT 11 (7-52) Units/L Alkaline Phosphatase 51 (34-104) Units/L Albumin 3.5 (3.5-5.7) g/dL Calcium panel 01/14/18 Range/Units 09:31 Calcium 8.3 L (8.6-10.3) mg/dL Albumin 3.5 (3.5-5.7) g/dL Pituitary panel 01/14/18 Range/Units 09:31 Sodium 129 L (136-145) mEq/L Potassium 4.7 (3.5-5.1) mEq/L Chloride 98 (98-107) mEq/L Carbon Dioxide 24 (23-29) mEq/L BUN 39 H (6-20) mg/dL Creatinine 1.16 (0.70-1.30) mg/dL Glucose 451 H (70-105) mg/dL Calcium 8.3 L (8.6-10.3) mg/dL Adrenal panel 01/14/18 Range/Units 09:31 Sodium 129 L (136-145) mEq/L Potassium 4.7 (3.5-5.1) mEq/L Chloride 98 (98-107) mEq/L Carbon Dioxide 24 (23-29) mEq/L BUN 39 H (6-20) mg/dL Creatinine 1.16 (0.70-1.30) mg/dL Glucose 451 H (70-105) mg/dL Calcium 8.3 L (8.6-10.3) mg/dL Total Bilirubin 0.3 (0.3-1.0) mg/dL AST 12 L (13-39) Units/L ALT 11 (7-52) Units/L Alkaline Phosphatase 51 (34-104) Units/L Albumin 3.5 (3.5-5.7) g/dL All other labs normal. Consult Discharge Plan - Plan Referrals: Alvaro Sexton Jr, MD [Primary Care Provider] - - Attending Attestation For this encounter, I have reviewed the ADVANCE AGENT or PA documentation, treatment plan, and medical decision making; and I have had face to face time with this patient. 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 (3) Severe anemia Current Visit: Yes Status: Acute (4) Hematemesis Current Visit: Yes Status: Acute plan egd in next 24 hrs protonix, carafate npo ivf hydration transfuse as needed Qualifiers: Nausea presence: with nausea Qualified Code(s): K92.0 - Hematemesis Review of Systems All systems PM: The remainder of the systems were reviewed and are negative General Surgery Exam Initial Vital Signs Temp Pulse Resp BP Pulse Ox 99.0 F 132 18 122/100 100 01/14/18 09:14 01/14/18 09:14 01/14/18 09:14 01/14/18 09:14 01/14/18 09:14 - General physical appearance well nourished, no distress, no pain, other (pale) - Eyes PERRL - ENT atraumatic, normocephalic - Respiratory normal expansion, normal respiratory effort - Cardiovascular Cardiovascular exam: Present: RRR - Abdomen Abdomen general surgery: Present: bowel sounds present, soft, non tender. Absent: distended, guarding, rebound - Integumentary Integumentary general surgery: Present: warm and dry - Neurologic Present: CN 2-12 grossly intact - Musculoskeletal Present: normal posture - Psychiatric Psychiatric general surgery: Present: A&Ox3, speech is normal Exam Initial Vital Signs Temp Pulse Resp BP Pulse Ox 99.0 F 132 18 122/100 100 01/14/18 09:14 01/14/18 09:14 01/14/18 09:14 01/14/18 09:14 01/14/18 09:14 Results - Labs 01/15/18 06:09 01/15/18 06:09 Abnormal lab results RBC 3.20 M/mcL (4.19-5.50) L 01/15/18 06:09 Hgb 9.4 g/dL (12.9-16.9) L D 01/15/18 06:09 Hct 27.1 % (37.5-50.1) L 01/15/18 06:09 Polychromasia 1+ (Not Present) A 01/14/18 09:31 Poikilocytosis 1+ (Not Present) A 01/14/18 09:31 APTT 23.8 Seconds (26.0-36.0) L 01/14/18 09:29 Sodium 135 mEq/L (136-145) L 01/15/18 06:09 BUN 21 mg/dL (6-20) H 01/15/18 06:09 Glucose 144 mg/dL (70-105) H 01/15/18 06:09 POC Glucose 183 mg/dL (70-99) H 01/15/18 16:29 Hemoglobin A1c 8.7 % (-5.6) H 01/14/18 09:29 Calcium 8.3 mg/dL (8.6-10.3) L 01/15/18 06:09 AST 12 Units/L (13-39) L 01/14/18 09:31 Serum Total Protein 5.1 g/dL (6.4-8.9) L 01/14/18 09:31 Globulin 1.6 g/dL (2.4-3.5) L 01/14/18 09:31 Beta-Hydroxybutyric Acd 0.96 mmol/L (0.02-0.27) H 01/14/18 09:31 Ur Specific [place] <= 1.005 (1.010-1.025) L 01/14/18 10:37 Urine Glucose (UA) 500 mg/dL (Normal) H 01/14/18 10:37 Urine Ketones 15 mg/dL (Negative) H 01/14/18 10:37 Urine Blood Small (Negative) H 01/14/18 10:37 Gastric Occult Blood Positive (Negative) A 01/14/18 11:30 Diabetes panel 01/15/18 Range/Units 06:09 Sodium 135 L (136-145) mEq/L Potassium 4.0 (3.5-5.1) mEq/L Chloride 105 (98-107) mEq/L Carbon Dioxide 24 (23-29) mEq/L BUN 21 H (6-20) mg/dL Creatinine 1.03 (0.70-1.30) mg/dL Glucose 144 H (70-105) mg/dL Calcium 8.3 L (8.6-10.3) mg/dL Calcium panel 01/15/18 Range/Units 06:09 Calcium 8.3 L (8.6-10.3) mg/dL Pituitary panel 01/15/18 Range/Units 06:09 Sodium 135 L (136-145) mEq/L Potassium 4.0 (3.5-5.1) mEq/L Chloride 105 (98-107) mEq/L Carbon Dioxide 24 (23-29) mEq/L BUN 21 H (6-20) mg/dL Creatinine 1.03 (0.70-1.30) mg/dL Glucose 144 H (70-105) mg/dL Calcium 8.3 L (8.6-10.3) mg/dL Adrenal panel 01/15/18 Range/Units 06:09 Sodium 135 L (136-145) mEq/L Potassium 4.0 (3.5-5.1) mEq/L Chloride 105 (98-107) mEq/L Carbon Dioxide 24 (23-29) mEq/L BUN 21 H (6-20) mg/dL Creatinine 1.03 (0.70-1.30) mg/dL Glucose 144 H (70-105) mg/dL Calcium 8.3 L (8.6-10.3) mg/dL All other labs normal. - Attending Attestation I have personally performed a face to face evaluation on this patient. I have reviewed and agree with the care plan. History and Exam by me shows:
--- NOTE | 2018-01-14 13:19 | Internal Med History&Physical ---
Date of Encounter: 01/14/18 Time of Encounter: 12:45 Internal Medicine - H&P: HPI Chief complaint: High blood sugars, hematemesis Admitted From: Emergency Dept Plans for Post Hospital Care: Home History of present illness: Mr. Santamaria is a 37 year old male patient with history of type 1 diabetes mellitus , coronary artery disease status post PCI with stent in 2009 who presented to the ER with complaints of high blood sugars, nausea or vomiting along with hematemesis. 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 However since Saturday he has been having nausea and vomiting which has been persistent. He denies significant abdominal pain. He noticed dark colored blood in his emesis since then. He does take Plavix since his stent placement. He denies any history of alcohol abuse. No recent NSAID use. He reports that he was diagnosed with strep throat one week back and took nausea medications and antibiotics around that time. He denies any melena. No prior history of GI bleed. Past Med Surg Social Fam HX - Past Medical History Attestation: Yes The following information was validated with the patient. Source: patient Medical history: diabetes (Type 1 insulin dependent), hyperlipidemia, hypertension, other Additional medical history: gastroparesis, legally blind, cataracts left eye Psychiatric history: no psych history - Past Surgical History Additional surgical history: Stent, eye surgeries x4, insulin pump - Social History Smoking Status: Never smoker Smokeless Tobacco Status: No Alcohol use: none Drug use: marijuana Internal Medicine - H&P: Meds Carvedilol [Coreg] 25 mg PO BID 02/28/17 [History] Clopidogrel [Plavix] 75 mg PO DAILY 02/28/17 [History] Insulin Glargine,Hum.rec.anlog [Lantus Solostar] 8 unit SQ BID 02/28/17 [History ] Losartan Potassium [Cozaar] 100 mg PO DAILY 02/28/17 [History] amLODIPine [Norvasc] 5 mg PO DAILY 02/28/17 [History] Metoclopramide [Reglan] 10 mg PO QIDAC #40 tablet 03/02/17 [Rx] Buspirone HCl [Buspar] 15 mg PO DAILY 01/14/18 [History] Insulin LISPRO [Humalog] 70 unit SQ DAILY 01/14/18 [History] Rosuvastatin Calcium [Rosuvastatin Calcium] 10 mg PO DAILY 01/14/18 [History] 3 Allergy/AdvReac Type Severity Reaction Status Date / Time Qgfwffp-Nog-Tha Reductase AdvReac Rash Verified 01/14/18 12:40 Inhibitor [Statins] All Systems PM: A 10-system review of systems was performed and is negative for pertinent findings except as documented above in the HPI. - Constitutional Constitutional: malaise, no chills, no fever(s), no night sweats - EENT Eyes: no change in vision, no discharge, no pain, no photophobia Ears: as per HPI Nose, mouth and throat: no dysphagia, no nasal discharge, no neck pain, no sore throat - Cardiovascular Cardiovascular ROS IM: no chest pain, no diaphoresis, no dyspnea, no lightheadedness, no palpitations, no syncope - Respiratory Respiratory: no cough, no dyspnea, no wheezing, no excessive phlegm production - Gastrointestinal Gastrointestinal: hematemesis, nausea, vomiting - Musculoskeletal Musculoskeletal ROS IM: no numbness, no tingling - Integumentary Integumentary IM: no rash, no unusual bruising - Neurological Neurological ROS: no confusion, no convulsions, no focal weakness, no numbness, no tingling, no tremor(s) - Hematologic/Lymphatic Hematologic/Lymphatic: no easy bruising - Constitutional Vitals: Temp Pulse Resp BP Pulse Ox 99.4 F 105 12 120/70 100 01/14/18 11:40 01/14/18 12:55 01/14/18 12:55 01/14/18 12:55 01/14/18 12:55 General appearance: Present: cooperative, A&O X 3, answers questions appropriately Exam: . - Eye Additional comments: Blindness and right eye, conjunctival pallor - Respiratory Respiratory exam: Present: CTAB. Absent: accessory muscle use, rales, rhonchi, wheezes - Cardiovascular Cardiovascular exam: Present: RRR, +S1, +S2. Absent: diastolic murmur, gallop, rubs, systolic murmur - GI/Abdominal GI/Abdominal exam: Present: normal bowel sounds, soft, tenderness (Epigastric), no peritoneal signs. Absent: distended - Extremities Exam Extremities exam: Present: warm, radial pulses palpable and symmetrical. Absent : calf tenderness, cyanotic, pedal edema - Neurological Exam Neurological exam: Present: alert, oriented X3, no focal deficits. Absent: facial droop, speech deficit - Skin Skin exam: Present: dry, intact Internal Med - H&P Results - Labs CBC & Chem 7: 01/14/18 09:31 01/14/18 09:31 - EKG Data -: EKG Interpreted by Myself EKG shows normal: sinus rhythm Rate: tachycardia - Assessment and plan (1) Hematemesis Current Visit: Yes Status: Acute Assessment and plan: Patient presenting with acute hematemesis and severe anemia. Will keep nothing by mouth. Monitor closely in ICU. High risk for complications. Follow his H& H closely. On IV PPI drip. Also started on Carafate. Surgery consult and plan to do upper GI endoscopy tomorrow. Patient on Plavix. Will stop. No history of alcohol abuse- less concerning for esophageal varices. Qualifiers: Nausea presence: with nausea Qualified Code(s): K92.0 - Hematemesis (2) Severe anemia Current Visit: Yes Status: Acute Assessment and plan: Due to acute hematemesis and blood loss. Monitor blood counts closely. Patient receiving blood transfusion. We will follow his H&H and transfuse as needed stable. (3) Nausea & vomiting Current Visit: Yes Status: Acute Assessment and plan: And intractable nausea and vomiting. Patient may have underlying gastroparesis. He reports that he has not been previously diagnosed with this condition, although his medication list does show that he has been on Reglan in the past. For now will treat symptomatically. Once acute GI bleed ruled out, consider starting patient on scheduled Reglan. Qualifiers: Vomiting type: cyclical vomiting Vomiting Intractability: intractable Qualified Code(s): G43.A1 - Cyclical vomiting, intractable (4) Hypertension Current Visit: Yes Status: Chronic Assessment and plan: Well controlled. Continue monitoring blood pressure. Qualifiers: Hypertension type: essential hypertension Qualified Code(s): I10 - Essential (primary) hypertension (5) Type 1 diabetes mellitus Current Visit: Yes Status: Chronic Assessment and plan: With hyperglycemia. Monitor blood sugars. Place patient on sliding scale insulin. Insulin pump disconnected for now. 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 Not having any chest pain at this time. Qualifiers: Coronary Disease-Associated Artery/Lesion type: [place] artery [place] vs. transplanted heart: [place] heart Associated angina: without angina Qualified Code(s): I25.10 - Atherosclerotic heart disease of [place] coronary artery without angina pectoris (7) DVT prophylaxis Current Visit: Yes Status: Acute Assessment and plan: with SCDs - Time Spent With Patient Total time spent is greater than 50% in coordination of care (as documented) at patient's floor/unit and/or counseling patient:
[2018-01-14 13:20] LABS: INR 1.1; Prothrombin Time 12.2 Seconds (9.4-12.1)
[2018-01-14 13:23] LABS: Activated Partial Thrombo Time 23.8 Seconds (26.0-36.0)
[2018-01-14] MEDS ORDERED: D5% in Water 1,000 ML IVC PRN ×2 (13:46→14:13)
[2018-01-14] MEDS ORDERED: *HR* Dextrose 50 % in Water (Syg) 50 ML SYRINGE IVP PRN ×2 (13:46→14:13)
[2018-01-14] MEDS ORDERED: Dextrose Gel 15 GM/37.5 ML TUBE PO PRN ×4 (13:46→14:13)
[2018-01-14] MEDS ORDERED: 0.9 % Sodium Chloride 1,000 ML ONE (14:08)
[2018-01-14 14:31] LABS: Estimated Average Glucose 203 mg/dl; Hemoglobin A1C 8.7 %
[2018-01-14] MEDS ORDERED: Insulin LISPRO 300 UNITS/3 ML VIAL SQ SCH (16:00)
[2018-01-14] MEDS: Insulin LISPRO 300 UNITS/3 ML VIAL SQ SCH ×2 (16:08→21:19)
[2018-01-14] MEDS: Sucralfate 1 GM TABLET PO SCH ×2 (16:08→21:17)
[2018-01-14 17:34] LABS: Hematocrit 22.3 % (37.5-50.1)
[2018-01-14 18:12] LABS: Hemoglobin 7.7 g/dL (12.9-16.9)
--- NOTE | 2018-01-14 20:22 | Anesthesia Evaluation PreOp ---
<Yung Garcia - Last Filed: 01/15/18 17:41> Date of Encounter: 01/15/18 - Past History Cardiac History: Other Other Medical History: Other (severe anemia, transfused 4 units PRBC) Medications and Allergies Carvedilol [Coreg] 25 mg PO BID 02/28/17 [History] Clopidogrel [Plavix] 75 mg PO DAILY 02/28/17 [History] Insulin Glargine,Hum.rec.anlog [Lantus Solostar] 8 unit SQ BID 02/28/17 [History ] Losartan Potassium [Cozaar] 100 mg PO DAILY 02/28/17 [History] amLODIPine [Norvasc] 5 mg PO DAILY 02/28/17 [History] Metoclopramide [Reglan] 10 mg PO QIDAC #40 tablet 03/02/17 [Rx] Buspirone HCl [Buspar] 15 mg PO DAILY 01/14/18 [History] Insulin LISPRO [Humalog] 70 unit SQ DAILY 01/14/18 [History] Rosuvastatin Calcium [Rosuvastatin Calcium] 10 mg PO DAILY 01/14/18 [History] 3 Allergy/AdvReac Type Severity Reaction Status Date / Time Xyozeqr-Unj-Fsz Reductase AdvReac Rash Verified 01/14/18 12:40 Inhibitor [Statins] - Meds/Allergy Pre-op Review If Beta Blockers taken, Date/Time (Last Dose taken): 08:33 01/15/2018 Anesthesia Results - Labs 01/15/18 06:09 01/15/18 06:09 Anesthesia Exam NPO (# of Hours): > 8 hrs Pain Scale: 0 Pain Scale Used: Numeric (1 - 10) - HEENT Pupil (Motor): Pupils equal, EOMI Mallampati: II Teeth: Normal Oral Opening: Greater than 3 - 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 LOC: Oriented 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 Motor: Normal RUE, Normal LUE, Normal RLE, Normal LLE, Normal Face 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 Sensory: Normal: RUE, LUE, RLE, LLE, Face - Cardiac Rhythm: Regular Murmur: None JVD: No Carotid Bruit: No - Pulmonary Breath Sounds: bilateral Clear Respiratory Effort: Symmetrical - Additional Findings Agree with pre-op evaluation and plan to proceed with EGD/Colonoscopy Anesthesia Assess/Plan Modified Alphonse Scale for Level of Consciousness: Cooperative, oriented, and tranquil Anesthetic Plan: MAC Autologous Blood: Yes Monitoring Plan: Standard Monitors Recovery Plan: Other <Rosanne Brown - Last Filed: 01/15/18 20:07> Date of Encounter: 01/15/18 Time of Encounter: 20:20 - Past History Planned Operation: EGD and colonoscopy Cardiac History: HTN, Hyperlipidemia, Other (CAD) Pulmonary History: Denies Any Significant HX 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 History: Denies Any Significant HX Other Medical History: Diabetes Type I (insulin pump), Other (legallsevere anemia) Anesthesia History: No Prior Anesthetic Complications, Past Anesthesia Alcohol Use: none Drug use: marijuana - Meds/Allergy Pre-op Review Medications Reviewed: Yes Allergies Reviewed: Yes Beta Blockers on Current Med List: Yes Anesthesia Results - Labs 01/15/18 18:17 01/15/18 06:09 SINUS RHYTHM WITH SINUS ARRHYTHMIA LOW QRS VOLTAGE IN PRECORDIAL LEADS Electronically Signed On 01-13-2018 15:43:11 EDT by Juanito Arellano - Imaging EKG: report reviewed (Sinus tachycardia Electronically Signed On 12-02-2017 9:06: 46 EDT by Alvaro Sexton) Anesthesia Exam Vital Signs/O2 Sat, Most Current Temp Pulse Resp BP Pulse Ox 99.6 F 104 18 133/74 97 01/14/18 17:04 01/14/18 19:00 01/14/18 18:00 01/14/18 19:00 01/14/18 18:00 Weight: 63kg
[2018-01-14] MEDS: Insulin DETEMIR 100 UNIT/ML X5UNITS SQ SCH (21:18)
[2018-01-14 21:28] LABS: Hematocrit 19.3 % (37.5-50.1); Hemoglobin 6.8 g/dL (12.9-16.9)
[2018-01-15] MEDS: Pantoprazole 40 MG in 0.9 % Sodium Chloride Mini Bag 100 ML IVC SCH ×5 (01:12→21:01)
[2018-01-15 06:34] LABS: Prothrombin Time 11.7 Seconds (9.4-12.1)
[2018-01-15 06:35] LABS: Basophils # 0.1 K/mcL (0.0-0.2); Basophils % 0.5 %; Eosinophils % 0.3 %; Hematocrit 27.1 % (37.5-50.1); Immature Granulocytes % 0.7 % (0-4); Lymphocytes # 2.4 K/mcL (0.6-4.6); Lymphocytes % 22.3 %; Mean Corpuscular HGB Conc 34.7 g/dL (31.6-35.5); Mean Corpuscular Hemoglobin 29.4 pg (28.0-33.3); Mean Corpuscular Volume 84.7 fL (83.0-100.0); Mean Platelet Volume 9.4 fL (9.4-12.4); Monocytes # 0.6 K/mcL (0.0-1.3); Monocytes % 5.8 %; Neutrophils # 7.7 K/mcL (1.6-8.9); Platelet Count 211 K/mcL (140-400); Red Cell Distribution Width 13.8 % (11.5-14.5); Segmented Neutrophils % 70.4 %
[2018-01-15 06:38] LABS: Hemoglobin 9.4 g/dL (12.9-16.9)
[2018-01-15 06:49] LABS: BUN/Creatinine Ratio 20 (6-26); Blood Urea Nitrogen 21 mg/dL (6-20); Calcium 8.3 mg/dL (8.6-10.3); Carbon Dioxide 24 mEq/L (23-29); Chloride 105 mEq/L (98-107); Glucose 144 mg/dL (70-105); Osmolality,Calculated 286 (280-300); Sodium 135 mEq/L (136-145); eGFR For Non-African Americans > 60 (> 60)
[2018-01-15] MEDS: Sucralfate 1 GM TABLET PO SCH ×4 (08:33→21:07)
[2018-01-15] MEDS: amLODIPine 5 MG TABLET PO SCH (08:33)
[2018-01-15] MEDS: Insulin DETEMIR 100 UNIT/ML X5UNITS SQ SCH ×2 (08:34→20:52)
[2018-01-15] MEDS: Insulin LISPRO 300 UNITS/3 ML VIAL SQ SCH ×4 (08:34→20:53)
--- NOTE | 2018-01-15 08:56 | Electrocardiograph Report ---
[facility] Test Date: 2018-01-14 Pat Name: Refugio Santamaria Department: EXAM5 Room: 12 Gender: M [employer]: : 1980 Requested By: Giovani Barron Order Number: [id number] Reading MD: Alvaro Sexton Measurements Intervals [place] Rate: 115 P: 85 NE: 112 QRS: 92 QRSD: 84 T: 29 QT: 313 QTc: 433 Interpretive Statements Sinus tachycardia Anteroseptal infarct, old Baseline wander in lead(s) V2 Electronically Signed On 01-15-2018 8:54:35 EDT by Alvaro Sexton
[2018-01-15] MEDS ORDERED: Lidocaine 2% Syringe 100 MG/5 ML IV ONE (10:37)
[2018-01-15] MEDS ORDERED: *HR* Propofol 200 MG/20 ML VIAL IVP ONE (10:37)
[2018-01-15] MEDS ORDERED: *HR* Propofol 500 MG/50 ML BOTTLE IVC ONE (10:37)
--- NOTE | 2018-01-15 13:12 | Internal Med Progress Note ---
Hospitalist Progress Note - Encounter Date of Encounter: 01/15/18 Time of Encounter: 09:00 - Subjective Interval History: Mr. Santamaria is a 37 year old male patient with history of type 1 diabetes mellitus , coronary artery disease status post PCI with stent in 2009, on Plavix pt who presented to the ER with complaints of high blood sugars, nausea or vomiting along with hematemesis. 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 However since Saturday he has been having nausea and vomiting which has been persistent. He denies significant abdominal pain. He noticed dark colored blood in his emesis since then. He denied any history of alcohol abuse. No recent NSAID use. He denied any melena. No prior history of GI bleed. His initial Hb @ 5.1. After 4 units PRBC his Hb improved to 9.4 today. He denied any abd pain, any more N/V, No hematemesis. He wanted to eat. - Exam Vitals: Temp Pulse Resp BP Pulse Ox 98.2 F 82 14 120/83 100 01/15/18 12:00 01/15/18 12:00 01/15/18 12:00 01/15/18 12:00 01/15/18 12:00 Exam: Gen: Alert, awake, Oriented to time,place and person Chest: Diminished breath sounds B/L, No wheezing, No crackles, No rales Heart: S1S2+ RRR No murmurs Abd: Soft, NT, BS +, No organomegaly Ext: No edema, pulses are palpable, No calf tenderness Neuro : Benign findings Skin: No rash. - Assessment and Plan (1) Hematemesis Current Visit: Yes Status: Acute Assessment and Plan: Seems to be upper G.I. bleed surgery scheduled for possible EGD later today continue Protonix gtt and carafate NPO for now (2) Severe anemia Current Visit: Yes Status: Acute Assessment and Plan: Due to acute hematemesis and blood loss s/p 4 U PRBC.. Hb improved to 9.4 Cont close monitoring (3) Nausea & vomiting Current Visit: Yes Status: Acute Assessment and Plan: Improving cont symptomatic and supportive care IV antiemetics (4) Type 1 diabetes mellitus Current Visit: Yes Status: Chronic Assessment and Plan: Improved and stable blood sugars. Continue on sliding scale insulin and Levemir. Insulin pump disconnected for now. (5) DVT prophylaxis Current Visit: Yes Status: Acute Assessment and Plan: with SCDs (6) Hypertension Current Visit: Yes Status: Chronic Assessment and Plan: Well controlled. Resumed all home medications (7) Coronary artery disease Current Visit: Yes Status: Acute Assessment and Plan: Hold Plavix for now due to acute GI bleed. Not having any chest pain at this time. - Time Spent with Patient Total time spent is greater than 50% in coordination of care (as documented) at patient's floor/unit and/or counseling patient: Internal Medicine: Result - Labs CBC & Chem 7: 01/15/18 06:09 01/15/18 06:09 Labs: Short CBC 01/14/18 01/14/18 01/15/18 Range/Units 17:16 21:11 06:09 WBC 10.9 (4.3-11.1) K/mcL Hgb 7.7 L D 6.8 L 9.4 L D (12.9-16.9) g/dL Hct 22.3 L 19.3 L 27.1 L (37.5-50.1) % Plt Count 211 (140-400) K/mcL Neutrophils # 7.7 (1.6-8.9) K/mcL BMP 01/15/18 06:09 Sodium 135 L Potassium 4.0 Chloride 105 Carbon Dioxide 24 BUN 21 H Creatinine 1.03 Glucose 144 H Calcium 8.3 L - ABG Interpretation ABG results: PT/INR, D-dimer PT 11.7 Seconds (9.4-12.1) 01/15/18 06:10 Consult Discharge Plan - Plan Referrals: Alvaro Sexton Jr, MD [Primary Care Provider] - (1) Hematemesis Qualifiers: Nausea presence: with nausea Qualified Code(s): K92.0 - Hematemesis (3) Nausea & vomiting Qualifiers: Vomiting type: cyclical vomiting Vomiting Intractability: intractable Qualified Code(s): G43.A1 - Cyclical vomiting, intractable (4) Type 1 diabetes mellitus Qualifiers: Diabetes mellitus complication status: with ophthalmic complications Diabetes mellitus complication detail: with other ophthalmic complication Qualified Code(s): E10.39 - 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 transplanted heart: [place] heart Associated angina: without angina Qualified Code(s): I25.10 - Atherosclerotic heart disease of [place] coronary artery without angina pectoris
[2018-01-15] MEDS ORDERED: 0.9 % Sodium Chloride 1,000 ML ONE (17:16)
[2018-01-15 18:46] LABS: Hematocrit 31.6 % (37.5-50.1); Hemoglobin 10.5 g/dL (12.9-16.9)
[2018-01-16 04:12] LABS: Basophils # 0.1 K/mcL (0.0-0.2); Basophils % 0.4 %; Eosinophils # 0.1 K/mcL (0.0-0.6); Eosinophils % 0.3 %; Hematocrit 27.6 % (37.5-50.1); Hemoglobin 9.5 g/dL (12.9-16.9); Immature Granulocytes % 0.5 % (0-4); Lymphocytes # 1.9 K/mcL (0.6-4.6); Mean Corpuscular HGB Conc 34.4 g/dL (31.6-35.5); Mean Corpuscular Hemoglobin 29.1 pg (28.0-33.3); Mean Corpuscular Volume 84.7 fL (83.0-100.0); Mean Platelet Volume 9.5 fL (9.4-12.4); Monocytes # 0.8 K/mcL (0.0-1.3); Monocytes % 5.4 %; Neutrophils # 11.9 K/mcL (1.6-8.9); Platelet Count 229 K/mcL (140-400); Red Blood Count 3.26 M/mcL (4.19-5.50); Red Cell Distribution Width 13.9 % (11.5-14.5); Segmented Neutrophils % 80.4 %
[2018-01-16 04:23] LABS: % Iron Saturation 13 % (20-55); BUN/Creatinine Ratio 15 (6-26); Blood Urea Nitrogen 15 mg/dL (6-20); Calcium 8.4 mg/dL (8.6-10.3); Carbon Dioxide 25 mEq/L (23-29); Chloride 101 mEq/L (98-107); Glucose 207 mg/dL (70-105); Iron 34 mcg/dL (65-175); Osmolality,Calculated 283 (280-300); Potassium 3.9 mEq/L (3.5-5.1); Sodium 133 mEq/L (136-145); Transferrin 192 mg/dL (203-362); eGFR For Non-African Americans > 60 (> 60)
[2018-01-16] MEDS: Pantoprazole 40 MG in 0.9 % Sodium Chloride Mini Bag 100 ML IVC SCH (04:32)
[2018-01-16] MEDS: amLODIPine 5 MG TABLET PO SCH (08:19)
[2018-01-16] MEDS: Sucralfate 1 GM TABLET PO SCH (08:19)
[2018-01-16] MEDS: Insulin LISPRO 300 UNITS/3 ML VIAL SQ SCH (08:20)
[2018-01-16] MEDS: Insulin DETEMIR 100 UNIT/ML X5UNITS SQ SCH (08:20)
--- NOTE | 2018-01-16 08:31 | Discharge Summary ---
<Roel Kaufman - Last Filed: 01/16/18 08:42> - NOTES TO OUTPATIENT PROVIDER Notes to Outpatient Provider: Pending H.pylori testing and biopsy s/p EGD Orders not resulted at time of discharge: Pending orders 01/14/18 13:30 H. Pylori Antigen, Fecal Routine 01/15/18 18:04 H. pylori Urease Culture [RM] Routine 01/15/18 18:06 Surgical Pathology [PTH] Routine Date of Encounter: 01/16/18 Time of Encounter: 08:00 - Discharge Diagnosis (1) Hematemesis Priority: Primary Status: Acute Qualifiers: Nausea presence: with nausea Qualified Code(s): K92.0 - Hematemesis (2) Nausea & vomiting Priority: Secondary Status: Acute Qualifiers: Vomiting type: cyclical vomiting Vomiting Intractability: intractable Qualified Code(s): G43.A1 - Cyclical vomiting, intractable (3) Severe anemia Priority: Primary Status: Acute (4) Upper GI bleed Priority: Primary Status: Acute (5) Hypertension Priority: Secondary Status: Chronic Qualifiers: Hypertension type: essential hypertension Qualified Code(s): I10 - Essential (primary) hypertension (6) Type 1 diabetes mellitus Priority: Secondary Status: Chronic Qualifiers: Diabetes mellitus complication status: with ophthalmic complications Diabetes mellitus complication detail: with other ophthalmic complication Qualified Code(s): E10.39 - 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 Santamaria is a 37 year old male PMHx type 1 DM, CAD s/p PCI with stent in 2009, on plavix who presented to the ED with complaints of high blood surgards, n/v and hematemasis. He was recently started on insulin pump in October 2017 and reports glucometer has not been working properly. He has had high blood sugar in the interi. He was also recently on antibiotics for strep throat. 5 days ago , patient started experiencing persistent nausea and vomiting. He reports that he experiences this multiple times throughout the year. However, on Saturday, he noticed dark colored blood in his emesis. He denied severe abdominal pain or alcohol use. No recent NSAID use. Denied melena. No prior history of GIB. At ED, patient's hb = 5.1 and he received 4 units of RBCs since admission. FOBT was positive. He underwent EGD yesterday which demonstrated multiple 3mm sessile polyps without bleeding, no stigmata of recent bleeds. Polyp was removed. There was also 2 nonbleeding ulcers at gastric fundus. Grade 1 varices at middle third of esophagus was noted. Biopsy was taken at [facility]. Pending results for H.pylori as well. He will follow up with results as outpatient. His hemoglobin has been stable for the last 48 hours and current 9.5. He has not had another episode of hematemesis. He is tolerating PO intake. Patient denies dizziness, CP, SOB, abdominal pain. His n/v has improved. We will discharge him today with Carafate and Protonix. He is to follow up with his PCP. He is also instructed to come back to the emergency department if he notices recurring hematemesis with lightheadedness. Patient demonstrates understanding and is agreeable to treatment plan. Discharge discussed with: patient Time spent discussing smoking cessation with patient: 3 to 10 minutes - Time Spent with Patient Total time spent providing and/or coordinating discharge services: Greater than 30 minutes - Discharge Medications Prescriptions: Pantoprazole Sodium [Protonix] 40 mg PO DAILY #30 granpkt. Sucralfate [Carafate] 1 gm PO BID #60 tablet Home Medications: Carvedilol [Coreg] 25 mg PO BID 02/28/17 [History] Clopidogrel [Plavix] 75 mg PO DAILY 02/28/17 [History] Insulin Glargine,Hum.rec.anlog [Lantus Solostar] 8 unit SQ BID 02/28/17 [History ] Losartan Potassium [Cozaar] 100 mg PO DAILY 02/28/17 [History] amLODIPine [Norvasc] 5 mg PO DAILY 02/28/17 [History] Metoclopramide [Reglan] 10 mg PO QIDAC #40 tablet 03/02/17 [Rx] Buspirone HCl [Buspar] 15 mg PO DAILY 01/14/18 [History] Insulin LISPRO [Humalog] 70 unit SQ DAILY 01/14/18 [History] Rosuvastatin Calcium 10 mg PO DAILY 01/14/18 [History] Pantoprazole Sodium [Protonix] 40 mg PO DAILY #30 01/16/18 [Rx] Sucralfate [Carafate] 1 gm PO BID #60 tablet 01/16/18 [Rx] Allergies/Adverse Reactions: 3 Allergy/AdvReac Type Severity Reaction Status Date / Time Drnoidd-[id number]-Pgg Reductase AdvReac Rash Verified 01/14/18 12:40 Inhibitor [Statins] Date of admission: 01/14/18 13:10 Primary care physician: Alvaro Sexton Jr, MD Discharging clinician: Roel Kaufman Anticipated date of discharge: 01/16/18 - Constitutional Vitals: Temp Pulse Resp BP Pulse Ox 98.9 F 81 16 142/86 98 01/16/18 07:52 01/16/18 03:00 01/16/18 03:00 01/16/18 03:00 01/16/18 03:00 General appearance: Present: cooperative, A&O X 3, answers questions appropriately Exam: Gen: Alert, awake, Oriented to time,place and person Chest: Diminished breath sounds B/L, No wheezing, No crackles, No rales Heart: S1S2+ RRR No murmurs Abd: Soft, NT, BS +, No organomegaly Ext: No edema, pulses are palpable, No calf tenderness Neuro : Benign findings Skin: No rash. - Patient Status Disposition: Home, Self-Care Condition: Good Functional capacity at discharge: independent ambulation Overall status at discharge: patient is back to baseline - Discharge Instructions Follow Up With: Alvaro Sexton Jr, MD [Primary Care Provider] - Additional Instructions: Follow Up Appointment * Dr. Sexton's office will call you in the next 24 hours with your appointment date/time. Home Medication List * You have been given a list of your current medications. If you have changes in your medications, update your list. * Provide a list of current medications to your primary care physician. * Carry a copy of your current medications with you in case of an emergency. - Diet and Activity Activity: increase activity as tolerated, resume usual activities as tolerated <Thallapaneni,Rambabu - Last Filed: 01/16/18 14:29> Orders not resulted at time of discharge: Pending orders 01/14/18 13:30 H. Pylori Antigen, Fecal Routine 01/15/18 18:04 H. pylori Urease Culture [RM] Routine 01/15/18 18:06 Surgical Pathology [PTH] Routine Date of Encounter: 01/16/18 - Discharge Diagnosis (1) Hematemesis Status: Acute Qualifiers: Nausea presence: with nausea Qualified Code(s): K92.0 - Hematemesis (2) Severe anemia Status: Acute (3) Nausea & vomiting Status: Acute Qualifiers: Vomiting type: cyclical vomiting Vomiting Intractability: intractable Qualified Code(s): G43.A1 - Cyclical vomiting, intractable (4) Type 1 diabetes mellitus Status: Chronic Qualifiers: Diabetes mellitus complication status: with ophthalmic complications Diabetes mellitus complication detail: with other ophthalmic complication Qualified Code(s): E10.39 - 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 transplanted heart: [place] heart Associated angina: without angina Qualified Code(s): I25.10 - Atherosclerotic heart disease of [place] coronary artery without angina pectoris Hospital course: Mr. Santamaria is a 37 year old male - Time Spent with Patient Total time spent providing and/or coordinating discharge services: Date of admission: 01/14/18 13:10 Primary care physician: Alvaro Sexton Jr, MD - Constitutional Vitals: Temp Pulse Resp BP Pulse Ox 98.9 F 86 14 153/96 100 01/16/18 07:52 01/16/18 08:00 01/16/18 08:00 01/16/18 08:00 01/16/18 08:00 - Attending Attestation I examined this patient and my medical decision-making was reviewed with the Resident Physician Dr. Kaufman. I agree with the documented findings, disposition and treatment plan as described except to the extent set forth below. Mr. Santamaria is a 37 year old male patient with history of type 1 diabetes mellitus , coronary artery disease status post PCI with stent in 2009, on Plavix pt who presented to the ER with complaints of high blood sugars, nausea or vomiting along with hematemesis. 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 However since Saturday he has been having nausea and vomiting which has been persistent. He denies significant abdominal pain. He noticed dark colored blood in his emesis since then. He denied any history of alcohol abuse. No recent NSAID use. He denied any melena. No prior history of GI bleed. His initial Hb @ 5.1. After 4 units PRBC his Hb improved to 9.4. He did have EGD done y/d which showed non bleeding esophageal varices and non bleeding ulcer. He denied any more hematemesis. Recommend to continue taking PPI Dialy + Carafate and f/u with GI as an out pt. Medically stable to d/c home today. Gen: A, A, O x 3 Chest: CTA, No wheezing Abd: Soft, NT
[2018-01-16 09:11] VITALS: BP 153/96
== END 2018-01-16 10:38 | disposition home or self-care (01) | DRG 378 ==
LOC: EMEROOARM 09:08 → ICNU 13:10
PROVIDERS: ADMIT Internal Medicine; ATTEND Internal Medicine
PROC: ENDOEBX (2018-01-15 17:30)

== ENCOUNTER 2019-02-06 08:18 | Observation (INO) ==
[2019-02-06] MEDS ORDERED: Ondansetron 4 MG/2 ML VIAL IVP ONE ×2 (08:24→10:16)
[2019-02-06] MEDS ORDERED: 0.9 % Sodium Chloride 1,000 ML IVC ONE ×3 (08:24→12:06)
[2019-02-06] MEDS ORDERED: 0.9 % Sodium Chloride 1,000 ML IVC SCH ×2 (08:30→23:15)
[2019-02-06 08:56] LABS: Basophils % 0.3 %; Hematocrit 45.8 % (37.5-50.1); Hemoglobin 15.7 g/dL (12.9-16.9); Immature Granulocytes % 0.5 % (0-4); Lymphocytes # 1.4 K/mcL (0.6-4.6); Lymphocytes % 12.8 %; Mean Corpuscular HGB Conc 34.3 g/dL (31.6-35.5); Mean Corpuscular Hemoglobin 29.8 pg (28.0-33.3); Mean Corpuscular Volume 86.9 fL (83.0-100.0); Mean Platelet Volume 9.5 fL (9.4-12.4); Monocytes # 0.5 K/mcL (0.0-1.3); Monocytes % 4.6 %; Neutrophils # 9.1 K/mcL (1.6-8.9); Platelet Count 311 K/mcL (140-400); Red Blood Count 5.27 M/mcL (4.19-5.50); Red Cell Distribution Width 11.9 % (11.5-14.5); Segmented Neutrophils % 81.8 %; White Blood Count 11.1 K/mcL (4.3-11.1)
[2019-02-06 09:05] LABS: VBG Base Excess -3 mEq/L; VBG Chloride 100 mEq/L (98-107); VBG Glucose 430 mg/dl (65-95); VBG HCO3 19 mEq/L (21-27); VBG Ionized Calcium 0.99 mmol/L (1.15-1.35); VBG Oxygen Saturation 99 %; VBG PCO2 27 mmHg (41-51); VBG PH 7.47 pH Units (7.32-7.42); VBG PO2 140 mmHg (25-50); VBG Total CO2 20 mEq/L
[2019-02-06 09:18] LABS: Alanine Aminotransferase 28 Units/L (7-52); Albumin/Globulin Ratio 1.7 (1.1-2.2); Alkaline Phosphatase 90 Units/L (34-104); Aspartate Amino Transferase 19 Units/L (13-39); BUN/Creatinine Ratio 21 (6-26); Bilirubin,Total 0.8 mg/dL (0.3-1.0); Blood Urea Nitrogen 36 mg/dL (6-20); Calcium 10.4 mg/dL (8.6-10.3); Carbon Dioxide 18 mEq/L (23-29); Chloride 92 mEq/L (98-107); Globulin 2.9 g/dL (2.4-3.5); Glucose 425 mg/dL (70-105); Osmolality,Calculated 302 (280-300); Phosphorous 4.6 mg/dL (2.7-4.5); Potassium 4.5 mEq/L (3.5-5.1); Sodium 133 mEq/L (136-145); Total Protein 7.9 g/dL (6.4-8.9); Troponin I < 0.03 ng/mL (< 0.04); eGFR For African Americans 55 (> 60); eGFR For Non-African Americans 45 (> 60)
[2019-02-06 10:13] LABS: Bilirubin,Urine Negative (Negative); Blood,Urine Trace (Negative); Clarity,Urine Clear (Clear); Color,Urine Yellow (Yellow); Glucose,Urine (UA) >=1000 mg/dL (Normal); Ketones,Urine 40 mg/dL (Negative); Leukocyte Esterase,Urine Negative (Negative); Nitrite,Urine Negative (Negative); Protein,Urine 100 mg/dL (Neg-Trace); Specific Gravity,Urine 1.029 (1.010-1.025); Urobilinogen,Urine Normal (Normal)
[2019-02-06 10:16] LABS: Bacteria,Urine None Seen per hpf (None-Few); Hyaline Casts,Urine None Seen per lpf (None-Few); RBC,Urine 0-3 per hpf (0-3); Squamous Epithelial Cell,Urine None Seen per lpf (None-Few); WBC,Urine 0-3 per hpf (0-3)
[2019-02-06] MEDS ORDERED: *HR* Dextrose 50 % in Water (Syg) 50 ML SYRINGE IVP PRN ×2 (11:15→13:17)
[2019-02-06] MEDS ORDERED: *HR* Promethazine 25 MG/ML VIAL IVP ONE ×2 (11:17→12:45)
[2019-02-06] MEDS: Insulin Human Regular 100 UNIT in 0.9 % Sodium Chloride 100 ML IVC SCH (11:52)
[2019-02-06] MEDS ORDERED: Pantoprazole 40 MG in 0.9 % Sodium Chloride Mini Bag 100 ML IVC SCH (12:30)
[2019-02-06] MEDS ORDERED: Pantoprazole 40 MG VIAL ONE (12:47)
[2019-02-06] MEDS ORDERED: Naloxone 0.4 MG/ML INJ IVP PRN (13:02)
[2019-02-06] MEDS ORDERED: *HR* Promethazine 25 MG/ML VIAL IVP PRN (13:02)
[2019-02-06] MEDS ORDERED: Insulin Regular, Human 100 UNIT/ML IV PRN ×2 (13:17)
[2019-02-06] MEDS ORDERED: D5% in 0.45% NACL 1,000 ML IVC PRN (13:17)
[2019-02-06] MEDS ORDERED: *HR* Metoprolol 5 MG/5 ML VIAL IVP PRN (13:31)
[2019-02-06 13:52] LABS: Hematocrit 43.8 % (37.5-50.1); Hemoglobin 14.7 g/dL (12.9-16.9)
[2019-02-06 13:59] LABS: Mixed Venous Blood pCO2 42 mmHg (44-46); Mixed Venous Blood pH 7.29 pH Units (7.34-7.36); Mixed Venous Blood pO2 82 mmHg (35-45)
[2019-02-06 14:09] LABS: BUN/Creatinine Ratio 24 (6-26); Blood Urea Nitrogen 37 mg/dL (6-20); Calcium 9.2 mg/dL (8.6-10.3); Carbon Dioxide 19 mEq/L (23-29); Chloride 102 mEq/L (98-107); Glucose 299 mg/dL (70-105); Magnesium 1.8 mg/dL (1.6-2.6); Osmolality,Calculated 306 (280-300); Phosphorous 3.1 mg/dL (2.7-4.5); Potassium 3.8 mEq/L (3.5-5.1); Sodium 138 mEq/L (136-145); eGFR For African Americans > 60 (> 60); eGFR For Non-African Americans 50 (> 60)
[2019-02-06 14:23] LABS: Estimated Average Glucose 229 mg/dl
[2019-02-06 14:41] LABS: ABG Base Excess -3 mEq/L (-2 to 3); ABG HCO3 22 mEq/L (21-27); ABG Oxygen Saturation 96 % (95-98); ABG PCO2 38 mmHg (35-45); ABG PH 7.37 pH Units (7.32-7.45); ABG PO2 83 mmHg (85-104); ABG TCO2 23 mEq/L (20-26)
[2019-02-06] MEDS: 0.9 % Sodium Chloride w KCl 20 MEQ/1,000 ML MLS IVC SCH ×6 (14:41→21:49)
[2019-02-06] MEDS: D5% in 0.45% NACL w KCl 20 MEQ/1,000 ML MLS IVC PRN ×2 (15:38→21:10)
[2019-02-06] MEDS: 0.9 % Sodium Chloride 1,000 ML IVC SCH ×6 (15:42→21:49)
[2019-02-06] MEDS: 0.45 % Sodium Chloride w/KCl 20 MEQ/1,000 ML MLS IVC SCH ×12 (15:46→21:49)
[2019-02-06] MEDS ORDERED: Ondansetron ODT 4 MG TAB.RAPDIS PO PRN (16:26)
[2019-02-06] MEDS: hydrOXYzine pamoate 25 MG CAPSULE PO PRN (17:45)
[2019-02-06 19:02] LABS: BUN/Creatinine Ratio 24 (6-26); Blood Urea Nitrogen 33 mg/dL (6-20); Calcium 8.7 mg/dL (8.6-10.3); Carbon Dioxide 21 mEq/L (23-29); Chloride 110 mEq/L (98-107); Glucose 154 mg/dL (70-105); Osmolality,Calculated 300 (280-300); Sodium 140 mEq/L (136-145); eGFR For African Americans > 60 (> 60); eGFR For Non-African Americans 56 (> 60)
[2019-02-06] MEDS ORDERED: *HR* Dextrose 50 % in Water (Syg) 50 ML SYRINGE ONE (20:07)
[2019-02-06] MEDS ORDERED: NON-FORMULARY MEDICATION 1 EACH EACH (Omeprazole [Prilosec] 40 MG) PO SCH (21:00)
[2019-02-06] MEDS ORDERED: D5% in Water 1,000 ML IVC PRN (21:13)
[2019-02-06] MEDS ORDERED: Dextrose Gel 15 GM/37.5 ML TUBE PO PRN ×2 (21:13)
[2019-02-06] MEDS: Pantoprazole 40 MG VIAL IVP SCH (21:28)
[2019-02-06] MEDS: Aspirin Enteric Coated 81 MG Tablet PO SCH (21:37)
[2019-02-06 22:07] LABS: BUN/Creatinine Ratio 23 (6-26); Blood Urea Nitrogen 31 mg/dL (6-20); Calcium 8.7 mg/dL (8.6-10.3); Carbon Dioxide 22 mEq/L (23-29); Chloride 110 mEq/L (98-107); Glucose 63 mg/dL (70-105); Osmolality,Calculated 293 (280-300); Potassium 3.9 mEq/L (3.5-5.1); Sodium 139 mEq/L (136-145); eGFR For African Americans > 60 (> 60); eGFR For Non-African Americans 58 (> 60)
[2019-02-06] MEDS: Ondansetron 4 MG/2 ML VIAL IVP PRN (23:19)
[2019-02-06 23:33] LABS: Amphetamine Screen,Urine Negative ng/mL (Cutoff=1000); Barbiturate Screen,Urine Negative ng/mL (Cutoff=200); Benzodiazepines Screen,Urine Negative ng/mL (Cutoff=200); Cannabinoid Screen,Urine Positive ng/mL (Cutoff = 50); Cocaine Screen,Urine Negative ng/mL (Cutoff= 300); Opiate Screen,Urine Negative ng/mL (Cutoff=300); Phencyclidine Screen,Urine Negative ng/mL (Cutoff=25)
[2019-02-07 02:14] LABS: Basophils % 0.3 %; Eosinophils % 0.1 %; Hematocrit 42.3 % (37.5-50.1); Hemoglobin 13.7 g/dL (12.9-16.9); Immature Granulocytes % 0.4 % (0-4); Lymphocytes # 1.4 K/mcL (0.6-4.6); Lymphocytes % 11.8 %; Mean Corpuscular HGB Conc 32.4 g/dL (31.6-35.5); Mean Corpuscular Hemoglobin 29.8 pg (28.0-33.3); Mean Platelet Volume 9.2 fL (9.4-12.4); Monocytes # 0.9 K/mcL (0.0-1.3); Monocytes % 7.7 %; Neutrophils # 9.3 K/mcL (1.6-8.9); Platelet Count 261 K/mcL (140-400); Red Cell Distribution Width 11.9 % (11.5-14.5); Segmented Neutrophils % 79.7 %; White Blood Count 11.7 K/mcL (4.3-11.1)
[2019-02-07 02:37] LABS: BUN/Creatinine Ratio 23 (6-26); Blood Urea Nitrogen 30 mg/dL (6-20); Calcium 8.9 mg/dL (8.6-10.3); Carbon Dioxide 21 mEq/L (23-29); Chloride 100 mEq/L (98-107); Glucose 326 mg/dL (70-105); Osmolality,Calculated 297 (280-300); Potassium 4.4 mEq/L (3.5-5.1); Sodium 134 mEq/L (136-145); eGFR For African Americans > 60 (> 60); eGFR For Non-African Americans 60 (> 60)
[2019-02-07] MEDS ORDERED: Insulin Human Regular 10 UNIT in 0.9 % Sodium Chloride 10 ML IV ONE (03:21)
[2019-02-07] MEDS: Pantoprazole 40 MG VIAL IVP SCH ×2 (06:30→20:35)
[2019-02-07] MEDS ORDERED: amLODIPine 5 MG TABLET PO SCH (09:00)
[2019-02-07] MEDS: Insulin LISPRO 300 UNITS/3 ML VIAL SQ SCH (20:33)
[2019-02-07] MEDS: Insulin Human Regular 100 UNIT in 0.9 % Sodium Chloride 100 ML IVC SCH (20:34)
[2019-02-07] MEDS: Aspirin Enteric Coated 81 MG Tablet PO SCH (20:52)
[2019-02-07] MEDS: hydrOXYzine pamoate 25 MG CAPSULE PO PRN (20:52)
[2019-02-07] MEDS: Ondansetron 4 MG/2 ML VIAL IVP PRN (20:52)
[2019-02-07] MEDS ORDERED: Insulin LISPRO 300 UNITS/3 ML VIAL SQ SCH (21:00)
[2019-02-07] MEDS: Insulin DETEMIR 100 UNIT/ML X5UNITS SQ SCH ×2 (21:15)
[2019-02-08 04:28] LABS: Hematocrit 40.7 % (37.5-50.1); Hemoglobin 13.3 g/dL (12.9-16.9); Mean Corpuscular HGB Conc 32.7 g/dL (31.6-35.5); Mean Corpuscular Hemoglobin 29.8 pg (28.0-33.3); Mean Corpuscular Volume 91.1 fL (83.0-100.0); Mean Platelet Volume 9.2 fL (9.4-12.4); Platelet Count 257 K/mcL (140-400); Red Blood Count 4.47 M/mcL (4.19-5.50); Red Cell Distribution Width 11.6 % (11.5-14.5); White Blood Count 11.3 K/mcL (4.3-11.1)
[2019-02-08 04:45] LABS: BUN/Creatinine Ratio 18 (6-26); Blood Urea Nitrogen 20 mg/dL (6-20); Calcium 8.6 mg/dL (8.6-10.3); Carbon Dioxide 23 mEq/L (23-29); Chloride 99 mEq/L (98-107); Glucose 205 mg/dL (70-105); Osmolality,Calculated 281 (280-300); Potassium 3.6 mEq/L (3.5-5.1); Sodium 131 mEq/L (136-145); eGFR For African Americans > 60 (> 60); eGFR For Non-African Americans > 60 (> 60)
[2019-02-08] MEDS: Pantoprazole 40 MG VIAL IVP SCH (06:26)
[2019-02-08] MEDS ORDERED: amLODIPine 5 MG TABLET PO SCH (07:00)
[2019-02-08 08:07] VITALS: BP 148/86
[2019-02-08] MEDS: Insulin DETEMIR 100 UNIT/ML X5UNITS SQ SCH (09:37)
[2019-02-08] MEDS: Insulin LISPRO 300 UNITS/3 ML VIAL SQ SCH (09:37)
== END 2019-02-08 10:20 | disposition home or self-care (01) ==
LOC: CDU 08:18 → EMEROOARM 08:18 → SUATTDRO 13:10 → CDU 13:15 → 3NENU 02-07 18:00
PROVIDERS: ADMIT Student in an Organized Health Care Education/Training Program; ATTEND Family Medicine

== ENCOUNTER 2019-04-01 10:52 | Inpatient (IN) ==
[2019-04-01] MEDS ORDERED: 0.9 % Sodium Chloride 1,000 ML IVC ONE ×3 (11:13→18:30)
[2019-04-01] MEDS: Ondansetron 4 MG/2 ML VIAL IVP ONE ×2 (11:33→14:59)
[2019-04-01 11:57] LABS: Basophils % 0.2 %; Hematocrit 49.7 % (37.5-50.1); Hemoglobin 16.9 g/dL (12.9-16.9); Immature Granulocytes % 0.4 % (0-4); Lymphocytes # 1.5 K/mcL (0.6-4.6); Lymphocytes % 10.4 %; Mean Corpuscular Hemoglobin 29.2 pg (28.0-33.3); Mean Corpuscular Volume 85.8 fL (83.0-100.0); Mean Platelet Volume 9.4 fL (9.4-12.4); Monocytes # 0.7 K/mcL (0.0-1.3); Monocytes % 4.6 %; Platelet Count 387 K/mcL (140-400); Red Blood Count 5.79 M/mcL (4.19-5.50); Red Cell Distribution Width 12.6 % (11.5-14.5); Segmented Neutrophils % 84.4 %; White Blood Count 14.3 K/mcL (4.3-11.1)
[2019-04-01] MEDS ORDERED: Haloperidol Lactate 5 MG/ML VIAL IVP STA (11:58)
[2019-04-01 12:16] LABS: Alanine Aminotransferase 19 Units/L (7-52); Albumin 5.1 g/dL (3.5-5.7); Albumin/Globulin Ratio 1.6 (1.1-2.2); Alkaline Phosphatase 92 Units/L (34-104); Aspartate Amino Transferase 14 Units/L (13-39); BUN/Creatinine Ratio 25 (6-26); Bilirubin,Total 0.7 mg/dL (0.3-1.0); Blood Urea Nitrogen 41 mg/dL (6-20); Calcium 10.7 mg/dL (8.6-10.3); Carbon Dioxide 21 mEq/L (23-29); Chloride 94 mEq/L (98-107); Globulin 3.1 g/dL (2.4-3.5); Glucose 382 mg/dL (70-105); Osmolality,Calculated 306 (280-300); Potassium 4.5 mEq/L (3.5-5.1); Sodium 135 mEq/L (136-145); Total Protein 8.2 g/dL (6.4-8.9); eGFR For African Americans 57 (> 60); eGFR For Non-African Americans 47 (> 60)
[2019-04-01 13:35] LABS: VBG HCO3 20 mEq/L (21-27); VBG PCO2 30 mmHg (41-51); VBG PH 7.43 pH Units (7.32-7.42); VBG PO2 163 mmHg (25-50)
[2019-04-01] MEDS ORDERED: *HR* Dextrose 50 % in Water (Syg) 50 ML SYRINGE IVP PRN ×2 (14:13→15:09)
[2019-04-01] MEDS ORDERED: Insulin Human Regular 100 UNIT in 0.9 % Sodium Chloride 100 ML IVC SCH (14:15)
[2019-04-01] MEDS ORDERED: Ondansetron 4 MG/2 ML VIAL ONE (14:55)
[2019-04-01] MEDS ORDERED: Ondansetron 4 MG/2 ML VIAL IVP ONE (14:59)
[2019-04-01] MEDS ORDERED: Ondansetron 4 MG/2 ML VIAL IVP PRN (15:07)
[2019-04-01] MEDS ORDERED: Naloxone 0.4 MG/ML INJ IVP PRN (15:07)
[2019-04-01] MEDS ORDERED: Ondansetron ODT 4 MG TAB.RAPDIS SL PRN (15:07)
[2019-04-01] MEDS ORDERED: *HR* Promethazine 25 MG/ML VIAL IVP PRN (15:07)
[2019-04-01] MEDS ORDERED: Insulin Regular, Human 100 UNIT/ML IV PRN (15:09)
[2019-04-01 16:18] LABS: Lipase < 3 Units/L (11-82); Troponin I < 0.03 ng/mL (< 0.04)
[2019-04-01] MEDS ORDERED: D5% in 0.45% NACL w KCl 20 MEQ/1,000 ML MLS IVC PRN (18:19)
[2019-04-01] MEDS ORDERED: D5% in 0.45% NACL 1,000 ML IVC PRN (18:19)
[2019-04-01] MEDS: carvediloL 25 MG TABLET PO SCH (19:03)
[2019-04-01 20:15] LABS: Calcium 9.6 mg/dL (8.6-10.3)
[2019-04-01] MEDS: Aspirin Enteric Coated 81 MG Tablet PO SCH (20:25)
[2019-04-01] MEDS: Gabapentin 400 MG CAPSULE PO SCH (20:26)
[2019-04-02 02:09] LABS: Bilirubin,Urine Negative (Negative); Blood,Urine Negative (Negative); Clarity,Urine Clear (Clear); Color,Urine Yellow (Yellow); Glucose,Urine (UA) >=1000 mg/dL (Normal); Ketones,Urine 40 mg/dL (Negative); Leukocyte Esterase,Urine Negative (Negative); Nitrite,Urine Negative (Negative); Protein,Urine 100 mg/dL (Neg-Trace); Specific Gravity,Urine 1.025 (1.010-1.025); Urobilinogen,Urine Normal (Normal)
[2019-04-02 02:11] LABS: Bacteria,Urine None Seen per hpf (None-Few); Hyaline Casts,Urine None Seen per lpf (None-Few); RBC,Urine 0-3 per hpf (0-3); Squamous Epithelial Cell,Urine Moderate per lpf (None-Few); WBC,Urine 0-3 per hpf (0-3)
[2019-04-02 02:21] LABS: Amphetamine Screen,Urine Negative ng/mL (Cutoff=1000); Barbiturate Screen,Urine Negative ng/mL (Cutoff=200); Benzodiazepines Screen,Urine Negative ng/mL (Cutoff=200); Cannabinoid Screen,Urine Positive ng/mL (Cutoff = 50); Cocaine Screen,Urine Negative ng/mL (Cutoff= 300); Opiate Screen,Urine Negative ng/mL (Cutoff=300); Phencyclidine Screen,Urine Negative ng/mL (Cutoff=25)
[2019-04-02 02:28] LABS: Calcium 8.8 mg/dL (8.6-10.3)
[2019-04-02] MEDS ORDERED: Insulin DETEMIR 100 UNIT/ML X5UNITS SQ ONE (04:16)
[2019-04-02] MEDS ORDERED: Dextrose Gel 15 GM/37.5 ML TUBE PO PRN ×2 (04:17)
[2019-04-02] MEDS ORDERED: D5% in Water 1,000 ML IVC PRN (04:17)
[2019-04-02 05:19] LABS: Basophils % 0.2 %; Eosinophils % 0.1 %; Immature Granulocytes % 0.7 % (0-4); Lymphocytes # 2.3 K/mcL (0.6-4.6); Lymphocytes % 14.2 %; Mean Corpuscular HGB Conc 32.7 g/dL (31.6-35.5); Mean Corpuscular Hemoglobin 28.9 pg (28.0-33.3); Mean Corpuscular Volume 88.4 fL (83.0-100.0); Mean Platelet Volume 9.6 fL (9.4-12.4); Monocytes # 1.4 K/mcL (0.0-1.3); Monocytes % 8.9 %; Neutrophils # 12.2 K/mcL (1.6-8.9); Platelet Count 332 K/mcL (140-400); Red Blood Count 4.98 M/mcL (4.19-5.50); Red Cell Distribution Width 12.9 % (11.5-14.5); Segmented Neutrophils % 75.9 %; White Blood Count 16.1 K/mcL (4.3-11.1)
[2019-04-02 05:27] LABS: Hemoglobin 14.4 g/dL (12.9-16.9)
[2019-04-02 05:34] LABS: Calcium 8.9 mg/dL (8.6-10.3); Potassium 4.2 mEq/L (3.5-5.1)
[2019-04-02] MEDS ORDERED: 0.9 % Sodium Chloride 1,000 ML IVC SCH (07:45)
[2019-04-02] MEDS: Gabapentin 300 MG CAPSULE PO SCH ×2 (08:35→12:27)
[2019-04-02] MEDS: carvediloL 25 MG TABLET PO SCH ×2 (08:35→16:39)
[2019-04-02] MEDS: amLODIPine 5 MG TABLET PO SCH (08:35)
[2019-04-02] MEDS: Insulin LISPRO 300 UNITS/3 ML VIAL SQ SCH ×4 (08:42→20:32)
[2019-04-02 10:06] LABS: BUN/Creatinine Ratio 26 (6-26); Blood Urea Nitrogen 38 mg/dL (6-20); Calcium 8.9 mg/dL (8.6-10.3); Carbon Dioxide 24 mEq/L (23-29); Chloride 98 mEq/L (98-107); Glucose 293 mg/dL (70-105); Osmolality,Calculated 290 (280-300); Potassium 4.3 mEq/L (3.5-5.1); Sodium 130 mEq/L (136-145); eGFR For African Americans > 60 (> 60); eGFR For Non-African Americans 53 (> 60)
[2019-04-02 14:17] LABS: BUN/Creatinine Ratio 26 (6-26); Blood Urea Nitrogen 34 mg/dL (6-20); Calcium 9.1 mg/dL (8.6-10.3); Carbon Dioxide 25 mEq/L (23-29); Chloride 98 mEq/L (98-107); Glucose 296 mg/dL (70-105); Osmolality,Calculated 289 (280-300); Potassium 4.1 mEq/L (3.5-5.1); Sodium 130 mEq/L (136-145); eGFR For African Americans > 60 (> 60); eGFR For Non-African Americans > 60 (> 60)
[2019-04-02 16:17] LABS: BUN/Creatinine Ratio 25 (6-26); Blood Urea Nitrogen 32 mg/dL (6-20); Calcium 9.3 mg/dL (8.6-10.3); Carbon Dioxide 24 mEq/L (23-29); Chloride 97 mEq/L (98-107); Glucose 287 mg/dL (70-105); Osmolality,Calculated 287 (280-300); Potassium 4.5 mEq/L (3.5-5.1); Sodium 130 mEq/L (136-145); eGFR For African Americans > 60 (> 60); eGFR For Non-African Americans > 60 (> 60)
[2019-04-02] MEDS: Gabapentin 400 MG CAPSULE PO SCH (20:35)
[2019-04-02] MEDS: Aspirin Enteric Coated 81 MG Tablet PO SCH (20:36)
[2019-04-03] MEDS: Gabapentin 300 MG CAPSULE PO SCH ×2 (07:54→12:05)
[2019-04-03] MEDS: carvediloL 25 MG TABLET PO SCH ×2 (07:55→17:07)
[2019-04-03] MEDS: amLODIPine 5 MG TABLET PO SCH (07:55)
[2019-04-03] MEDS: Insulin LISPRO 300 UNITS/3 ML VIAL SQ SCH ×6 (07:56→21:55)
[2019-04-03 08:18] LABS: Hematocrit 41.9 % (37.5-50.1); Hemoglobin 13.7 g/dL (12.9-16.9); Mean Corpuscular HGB Conc 32.7 g/dL (31.6-35.5); Mean Corpuscular Hemoglobin 28.8 pg (28.0-33.3); Mean Platelet Volume 9.9 fL (9.4-12.4); Platelet Count 260 K/mcL (140-400); Red Blood Count 4.76 M/mcL (4.19-5.50); White Blood Count 11.1 K/mcL (4.3-11.1)
[2019-04-03 08:26] LABS: BUN/Creatinine Ratio 22 (6-26); Blood Urea Nitrogen 24 mg/dL (6-20); Calcium 9.2 mg/dL (8.6-10.3); Carbon Dioxide 21 mEq/L (23-29); Chloride 89 mEq/L (98-107); Glucose 445 mg/dL (70-105); Osmolality,Calculated 285 (280-300); Potassium 4.5 mEq/L (3.5-5.1); Sodium 126 mEq/L (136-145); eGFR For African Americans > 60 (> 60); eGFR For Non-African Americans > 60 (> 60)
[2019-04-03] MEDS ORDERED: Insulin DETEMIR 100 UNIT/ML X5UNITS SQ SCH (09:00)
[2019-04-03] MEDS: Insulin DETEMIR 100 UNIT/ML X5UNITS SQ SCH (10:16)
[2019-04-03 10:58] LABS: ABG Base Excess 1 mEq/L (-2 to 3); ABG HCO3 26 mEq/L (21-27); ABG Oxygen Saturation 94 % (95-98); ABG PCO2 43 mmHg (35-45); ABG PO2 71 mmHg (85-104); ABG TCO2 28 mEq/L (20-26)
[2019-04-03 13:03] LABS: BUN/Creatinine Ratio 21 (6-26); Blood Urea Nitrogen 24 mg/dL (6-20); Calcium 9.7 mg/dL (8.6-10.3); Carbon Dioxide 24 mEq/L (23-29); Chloride 91 mEq/L (98-107); Glucose 231 mg/dL (70-105); Osmolality,Calculated 279 (280-300); Potassium 3.9 mEq/L (3.5-5.1); Sodium 129 mEq/L (136-145); eGFR For African Americans > 60 (> 60); eGFR For Non-African Americans > 60 (> 60)
[2019-04-03] MEDS: Aspirin Enteric Coated 81 MG Tablet PO SCH (21:07)
[2019-04-03] MEDS: Gabapentin 400 MG CAPSULE PO SCH (21:08)
[2019-04-04 05:24] LABS: Hematocrit 42.1 % (37.5-50.1); Hemoglobin 14.4 g/dL (12.9-16.9); Mean Corpuscular HGB Conc 34.2 g/dL (31.6-35.5); Mean Corpuscular Hemoglobin 28.7 pg (28.0-33.3); Mean Corpuscular Volume 83.9 fL (83.0-100.0); Mean Platelet Volume 9.3 fL (9.4-12.4); Platelet Count 304 K/mcL (140-400); Red Blood Count 5.02 M/mcL (4.19-5.50); Red Cell Distribution Width 12.2 % (11.5-14.5); White Blood Count 6.7 K/mcL (4.3-11.1)
[2019-04-04 05:46] LABS: BUN/Creatinine Ratio 17 (6-26); Blood Urea Nitrogen 18 mg/dL (6-20); Calcium 9.4 mg/dL (8.6-10.3); Carbon Dioxide 25 mEq/L (23-29); Chloride 96 mEq/L (98-107); Glucose 178 mg/dL (70-105); Osmolality,Calculated 280 (280-300); Potassium 4.3 mEq/L (3.5-5.1); Sodium 132 mEq/L (136-145); eGFR For African Americans > 60 (> 60); eGFR For Non-African Americans > 60 (> 60)
[2019-04-04 07:25] VITALS: BP 149/83
[2019-04-04] MEDS: Insulin LISPRO 300 UNITS/3 ML VIAL SQ SCH (08:58)
[2019-04-04] MEDS: amLODIPine 5 MG TABLET PO SCH (08:59)
[2019-04-04] MEDS: Gabapentin 300 MG CAPSULE PO SCH (08:59)
[2019-04-04] MEDS: carvediloL 25 MG TABLET PO SCH (09:00)
[2019-04-04] MEDS ORDERED: Insulin DETEMIR 100 UNIT/ML X5UNITS SQ SCH ×2 (09:00→09:30)
[2019-04-04] MEDS: Insulin DETEMIR 100 UNIT/ML X5UNITS SQ SCH (11:15)
[2019-04-04] MEDS ORDERED: Insulin LISPRO 300 UNITS/3 ML VIAL SQ SCH (12:00)
== END 2019-04-04 12:43 | disposition home or self-care (01) | DRG 638 ==
LOC: 2NNU 10:52 → EMEROOARM 10:52 → SUATTDRO 17:25 → 2NNU 18:41 → 3ANU 04-02 16:17
PROVIDERS: ADMIT Internal Medicine; ATTEND Family Medicine

== ENCOUNTER 2021-08-08 18:58 | Inpatient (IN) ==
[2021-08-08 20:12] LABS: Basophils % 0.2 %; Hematocrit 47.7 % (37.5-50.1); Immature Granulocytes % 0.5 % (0-4); Lymphocytes # 1.4 K/mcL (0.6-4.6); Lymphocytes % 9.1 %; Mean Corpuscular HGB Conc 33.5 g/dL (31.6-35.5); Mean Corpuscular Hemoglobin 29.3 pg (28.0-33.3); Mean Corpuscular Volume 87.2 fL (83.0-100.0); Mean Platelet Volume 9.6 fL (9.4-12.4); Monocytes # 0.8 K/mcL (0.0-1.3); Monocytes % 5.3 %; Neutrophils # 12.9 K/mcL (1.6-8.9); Platelet Count 369 K/mcL (140-400); Red Blood Count 5.47 M/mcL (4.19-5.50); Red Cell Distribution Width 12.4 % (11.5-14.5); Segmented Neutrophils % 84.9 %; White Blood Count 15.2 K/mcL (4.3-11.1)
[2021-08-08 20:20] LABS: Albumin 5.2 g/dL (3.5-5.7); Albumin/Globulin Ratio 1.6 (1.1-2.2); Bilirubin,Total 0.6 mg/dL (0.3-1.0); Calcium 10.8 mg/dL (8.6-10.3); Globulin 3.2 g/dL (2.4-3.5); Potassium 4.1 mEq/L (3.5-5.1); Total Protein 8.4 g/dL (6.4-8.9)
[2021-08-08] MEDS ORDERED: 0.9 % Sodium Chloride 1,000 ML IVC ONE ×2 (20:35→23:10)
[2021-08-08] MEDS ORDERED: Isovue-370 500 ML BOTTLE IVP ONE ×2 (20:36→22:45)
[2021-08-08] MEDS ORDERED: Prochlorperazine 10 MG/2 ML VIAL IVP ONE (21:25)
[2021-08-08 21:51] LABS: VBG HCO3 23 mEq/L (21-27); VBG PCO2 31 mmHg (41-51); VBG PH 7.48 pH Units (7.32-7.42); VBG PO2 186 mmHg (25-50)
[2021-08-09] MEDS ORDERED: D5% in Water 1,000 ML IVC PRN (00:05)
[2021-08-09] MEDS ORDERED: *HR* Dextrose 50 % in Water (Syg) 50 ML SYRINGE IVP PRN (00:05)
[2021-08-09] MEDS ORDERED: Dextrose 4 GM Chewable Tablets PO PRN ×2 (00:05)
[2021-08-09] MEDS ORDERED: Ondansetron 4 MG/2 ML VIAL IVP PRN (00:10)
[2021-08-09] MEDS ORDERED: Melatonin 3 MG TABLET PO PRN (00:10)
[2021-08-09] MEDS ORDERED: Acetaminophen 325 MG TABLET PO PRN (00:10)
[2021-08-09] MEDS ORDERED: Naloxone 0.4 MG/ML INJ IVP PRN (00:10)
[2021-08-09] MEDS ORDERED: Ringers Solution, Lactated 1,000 ML IVC SCH ×2 (00:15→13:30)
[2021-08-09] MEDS: Pantoprazole 40 MG VIAL IVP SCH ×3 (01:30→16:43)
[2021-08-09 01:36] LABS: Sodium, Urine 20.7 mEq/L
[2021-08-09] MEDS ORDERED: Pantoprazole 40 MG VIAL IVP ONE (02:59)
[2021-08-09 03:24] LABS: Hematocrit 42.8 % (37.5-50.1); Mean Corpuscular HGB Conc 33.4 g/dL (31.6-35.5); Mean Corpuscular Hemoglobin 29.4 pg (28.0-33.3); Mean Corpuscular Volume 87.9 fL (83.0-100.0); Mean Platelet Volume 9.7 fL (9.4-12.4); Platelet Count 309 K/mcL (140-400); Red Blood Count 4.87 M/mcL (4.19-5.50); Red Cell Distribution Width 12.4 % (11.5-14.5); White Blood Count 13.5 K/mcL (4.3-11.1)
[2021-08-09 03:27] LABS: INR 1.1; Prothrombin Time 12.6 Seconds (9.4-12.1)
[2021-08-09 03:30] LABS: Activated Partial Thrombo Time 30.3 Seconds (26.0-36.0)
[2021-08-09 03:35] LABS: Hemoglobin 14.3 g/dL (12.9-16.9)
[2021-08-09 04:04] LABS: Albumin 4.4 g/dL (3.5-5.7); Albumin/Globulin Ratio 1.8 (1.1-2.2); Bilirubin,Direct 0.1 mg/dL (0.0-0.2); Bilirubin,Indirect 0.4 mg/dL (0.0-1.0); Bilirubin,Total 0.5 mg/dL (0.3-1.0); Calcium 9.6 mg/dL (8.6-10.3); Chol/HDL Ratio 2.8 (0-4.9); Globulin 2.5 g/dL (2.4-3.5); Phosphorous 5.1 mg/dL (2.7-4.5); Potassium 3.9 mEq/L (3.5-5.1); Total Protein 6.9 g/dL (6.4-8.9)
[2021-08-09 04:05] LABS: Adenovirus Not Detected (Not Detect); Bordetella Pertussis Not Detected (Not Detect); Chlamydophila pneumoniae Not Detected (Not Detect); Coronavirus 229E Not Detected (Not Detect); Coronavirus HKU1 Not Detected (Not Detect); Coronavirus NL63 Not Detected (Not Detect); Coronavirus OC43 Not Detected (Not Detect); Human Metapneumovirus Not Detected (Not Detect); Human Rhinovirus/Enterovirus Not Detected (Not Detect); Influenza A Subtype 2009 H1 Not Detected (Not Detect); Influenza B Not Detected (Not Detect); Mycoplasma pneumoniae Not Detected (Not Detect); Parainfluenza Virus 1 Not Detected (Not Detect); Parainfluenza Virus 2 Not Detected (Not Detect); Parainfluenza Virus 3 Not Detected (Not Detect); Parainfluenza Virus 4 Not Detected (Not Detect); Respiratory Syncytial Virus Not Detected (Not Detect); SARS-CoV-2 Not Detected (Not Detect)
[2021-08-09 05:19] LABS: Estimated Average Glucose 163 mg/dl; Hemoglobin A1C 7.3 %
[2021-08-09] MEDS: Insulin LISPRO 300 UNITS/3 ML VIAL SUBQ SCH ×3 (06:30→17:44)
[2021-08-09] MEDS: Piperacillin/Tazobactam 3.375 GM in 0.9 % Sodium Chloride Mini Bag 100 ML IVPB SCH ×3 (06:52→21:12)
[2021-08-09] MEDS ORDERED: Insulin DETEMIR 100 UNIT/ML X5UNITS SUBQ SCH (09:00)
[2021-08-09] MEDS ORDERED: Metoclopramide 10 MG/2 ML VIAL IVP PRN (13:19)
[2021-08-09] MEDS: carvediloL 25 MG TABLET PO SCH (16:43)
[2021-08-09 18:17] LABS: Hematocrit 43.3 % (37.5-50.1); Hemoglobin 14.3 g/dL (12.9-16.9)
[2021-08-09 19:50] LABS: Hematocrit 41.2 % (37.5-50.1)
[2021-08-09] MEDS ORDERED: Gabapentin 400 MG CAPSULE PO SCH (21:00)
[2021-08-10] MEDS: Insulin LISPRO 300 UNITS/3 ML VIAL SUBQ SCH ×3 (00:39→11:09)
[2021-08-10 03:01] LABS: Basophils # 0.1 K/mcL (0.0-0.2); Basophils % 0.7 %; Eosinophils % 0.4 %; Hematocrit 39.7 % (37.5-50.1); Hemoglobin 13.3 g/dL (12.9-16.9); Immature Granulocytes % 0.2 % (0-4); Lymphocytes # 2.7 K/mcL (0.6-4.6); Lymphocytes % 29.8 %; Mean Corpuscular HGB Conc 33.5 g/dL (31.6-35.5); Mean Corpuscular Hemoglobin 29.6 pg (28.0-33.3); Mean Corpuscular Volume 88.2 fL (83.0-100.0); Mean Platelet Volume 9.7 fL (9.4-12.4); Monocytes # 0.8 K/mcL (0.0-1.3); Monocytes % 8.8 %; Neutrophils # 5.4 K/mcL (1.6-8.9); Platelet Count 251 K/mcL (140-400); Red Cell Distribution Width 12.2 % (11.5-14.5); Segmented Neutrophils % 60.1 %
[2021-08-10 03:18] LABS: Calcium 9.1 mg/dL (8.6-10.3); Magnesium 1.9 mg/dL (1.6-2.6); Phosphorous 3.4 mg/dL (2.7-4.5); Potassium 3.2 mEq/L (3.5-5.1)
[2021-08-10] MEDS: Piperacillin/Tazobactam 3.375 GM in 0.9 % Sodium Chloride Mini Bag 100 ML IVPB SCH (05:37)
[2021-08-10] MEDS: Pantoprazole 40 MG VIAL IVP SCH (05:38)
[2021-08-10 07:13] VITALS: BP 143/87; PULSE 80; TEMP 98; O2SAT 95
[2021-08-10] MEDS: carvediloL 25 MG TABLET PO SCH (07:42)
[2021-08-10] MEDS ORDERED: Gabapentin 300 MG CAPSULE PO SCH (08:00)
[2021-08-10] MEDS ORDERED: amLODIPine 5 MG TABLET PO SCH (09:00)
[2021-08-10 09:47] LABS: Hematocrit 39.6 % (37.5-50.1); Hemoglobin 13.6 g/dL (12.9-16.9)
== END 2021-08-10 12:37 | disposition home or self-care (01) | DRG 871 ==
LOC: EMEROOARM 18:58 → 3NENU 18:58 → SUATTDRO 08-09 02:02
PROVIDERS: ADMIT Family Medicine; ATTEND Internal Medicine

== ENCOUNTER 2021-12-13 19:51 | Inpatient (IN) ==
[2021-12-13 21:25] LABS: Basophils % 0.3 %; Eosinophils % 0.3 %; Hematocrit 44.2 % (37.5-50.1); Immature Granulocytes % 0.3 % (0-4); Lymphocytes # 1.5 K/mcL (0.6-4.6); Lymphocytes % 46.6 %; Mean Corpuscular HGB Conc 33.9 g/dL (31.6-35.5); Mean Corpuscular Hemoglobin 29.3 pg (28.0-33.3); Mean Corpuscular Volume 86.3 fL (83.0-100.0); Mean Platelet Volume 10.7 fL (9.4-12.4); Monocytes # 0.4 K/mcL (0.0-1.3); Neutrophils # 1.3 K/mcL (1.6-8.9); Platelet Count 177 K/mcL (140-400); Red Blood Count 5.12 M/mcL (4.19-5.50); Red Cell Distribution Width 11.9 % (11.5-14.5); Segmented Neutrophils % 40.5 %; White Blood Count 3.2 K/mcL (4.3-11.1)
[2021-12-13 21:49] LABS: Calcium 8.8 mg/dL (8.6-10.3); Potassium 3.8 mEq/L (3.5-5.1)
[2021-12-13] MEDS ORDERED: 0.9 % Sodium Chloride 1,000 ML IVC ONE (23:47)
[2021-12-14] MEDS ORDERED: Melatonin 3 MG TABLET PO PRN (03:11)
[2021-12-14] MEDS ORDERED: Acetaminophen 325 MG TABLET PO PRN (03:11)
[2021-12-14] MEDS ORDERED: Naloxone 0.4 MG/ML INJ IVP PRN (03:11)
[2021-12-14] MEDS ORDERED: Ondansetron 4 MG/2 ML VIAL IVP PRN (03:11)
[2021-12-14] MEDS ORDERED: 0.9 % Sodium Chloride 1,000 ML IVC SCH (03:15)
[2021-12-14] MEDS ORDERED: D5% in Water 1,000 ML IVC PRN (04:47)
[2021-12-14] MEDS ORDERED: Dextrose Gel 15 GM/37.5 ML TUBE PO PRN ×2 (04:47)
[2021-12-14] MEDS ORDERED: *HR* Dextrose 50 % in Water (Syg) 50 ML SYRINGE IVP PRN (04:47)
[2021-12-14] MEDS: *HR* Heparin 5,000 UNIT/ML VIAL SQ SCH ×3 (06:55→22:22)
[2021-12-14 07:18] LABS: Protein/Creatinine Ratio,Urine 0.17 mg/mg (0.00-0.20)
[2021-12-14] MEDS ORDERED: 0.9 % Sodium Chloride 1,000 ML IVC ONE ×2 (08:20→12:19)
[2021-12-14 08:37] LABS: Bacteria,Urine Few per hpf (None-Few); Hyaline Casts,Urine Moderate per lpf (None Seen); Mucus,Urine Few per lpf (None-Few); RBC,Urine 0-3 per hpf (0-3); Sperm,Urine Present per hpf (None Seen)
[2021-12-14 11:25] LABS: Calcium 8.1 mg/dL (8.6-10.3); Magnesium 2.3 mg/dL (1.6-2.6); Potassium 3.7 mEq/L (3.5-5.1)
[2021-12-14] MEDS: Insulin LISPRO 300 UNITS/3 ML VIAL SUBQ SCH ×2 (12:22→17:03)
[2021-12-14] MEDS ORDERED: [UNRECOGNIZED DRUG - OTHER] SUBQ SCH (12:30)
[2021-12-14 14:22] LABS: Bilirubin,Urine Negative (Negative); Blood,Urine Negative (Negative); Clarity,Urine Clear (Clear); Color,Urine Yellow (Yellow); Glucose,Urine (UA) Normal (Normal); Ketones,Urine Trace mg/dL (Negative); Leukocyte Esterase,Urine Negative (Negative); Nitrite,Urine Negative (Negative); PH,Urine 5.5 pH Units (5.0-8.0); Protein,Urine Trace mg/dL (Neg-Trace); Specific Gravity,Urine 1.013 (1.010-1.025); Urobilinogen,Urine Normal (Normal)
[2021-12-14] MEDS ORDERED: Insulin LISPRO 300 UNITS/3 ML VIAL SUBQ SCH (21:00)
[2021-12-14] MEDS ORDERED: Insulin DETEMIR 100 UNIT/ML X5UNITS SUBQ SCH (21:00)
[2021-12-14 21:37] VITALS: O2SAT 97
[2021-12-14] MEDS: carvediloL 25 MG TABLET PO SCH (22:22)
[2021-12-15] MEDS: *HR* Heparin 5,000 UNIT/ML VIAL SQ SCH (05:27)
[2021-12-15] MEDS: Insulin LISPRO 300 UNITS/3 ML VIAL SUBQ SCH (07:45)
[2021-12-15] MEDS ORDERED: amLODIPine 5 MG TABLET PO SCH (09:00)
[2021-12-15] MEDS: carvediloL 25 MG TABLET PO SCH (09:12)
[2021-12-15 10:09] LABS: Calcium 8.4 mg/dL (8.6-10.3); Potassium 3.9 mEq/L (3.5-5.1)
[2021-12-15 11:37] VITALS: BP 107/68; PULSE 77; TEMP 98.4
== END 2021-12-15 12:03 | disposition home or self-care (01) | DRG 178 ==
LOC: 2ANU 19:51 → EMEROOARM 19:51 → 2ANU 12-14 12:56
PROVIDERS: ADMIT Internal Medicine; ATTEND Internal Medicine

== ENCOUNTER 2022-01-25 09:46 | Observation (INO) ==
[2022-01-25] MEDS ORDERED: *HR* HYDROmorphone (PF) 1 MG/ML SYRINGE IVP ONE (11:02)
[2022-01-25] MEDS ORDERED: Ondansetron 4 MG/2 ML VIAL IVP ONE (11:02)
[2022-01-25] MEDS ORDERED: 0.9 % Sodium Chloride 1,000 ML IVC ONE (11:02)
[2022-01-25] MEDS ORDERED: Iopamidol - 370 500 ML MLS IVP ONE (11:17)
[2022-01-25] MEDS: Ketorolac 30 MG/ML VIAL IVP SCH ×3 (11:21→23:16)
[2022-01-25 11:43] LABS: Bilirubin,Urine Negative (Negative); Blood,Urine Negative (Negative); Clarity,Urine Turbid (Clear); Color,Urine Yellow (Yellow); Glucose,Urine (UA) Normal (Normal); Hyaline Casts,Urine Few per lpf (None Seen); Ketones,Urine 10 mg/dL (Negative); Leukocyte Esterase,Urine Negative (Negative); Mucus,Urine Few per lpf (None-Few); Nitrite,Urine Negative (Negative); Protein,Urine 200 mg/dL (Neg-Trace); RBC,Urine 0-3 per hpf (0-3); Specific Gravity,Urine 1.023 (1.010-1.025); Squamous Epithelial Cell,Urine Few per hpf (None-Few); Urobilinogen,Urine Normal (Normal)
[2022-01-25] MEDS ORDERED: Piperacillin/Tazobactam 3.375 GM in 0.9 % Sodium Chloride Mini Bag 100 ML IVPB ONE (12:11)
[2022-01-25 12:15] LABS: Basophils % 0.3 %; Eosinophils % 0.3 %; Hematocrit 34.9 % (37.5-50.1); Hemoglobin 11.1 g/dL (12.9-16.9); Immature Granulocytes % 0.6 % (0-4); Lymphocytes % 9.5 %; Mean Corpuscular HGB Conc 31.8 g/dL (31.6-35.5); Mean Corpuscular Hemoglobin 28.5 pg (28.0-33.3); Mean Corpuscular Volume 89.5 fL (83.0-100.0); Mean Platelet Volume 9.9 fL (9.4-12.4); Monocytes # 1.1 K/mcL (0.0-1.3); Monocytes % 10.9 %; Neutrophils # 7.9 K/mcL (1.6-8.9); Platelet Count 221 K/mcL (140-400); Red Cell Distribution Width 12.4 % (11.5-14.5); Segmented Neutrophils % 78.4 %; White Blood Count 10.1 K/mcL (4.3-11.1)
[2022-01-25 12:34] LABS: Calcium 8.1 mg/dL (8.6-10.3); Potassium 3.9 mEq/L (3.5-5.1)
[2022-01-25] MEDS ORDERED: Naloxone 0.4 MG/ML INJ IVP PRN (13:47)
[2022-01-25] MEDS ORDERED: *HR* Dextrose 50 % in Water (Syg) 50 ML SYRINGE IVP PRN (13:54)
[2022-01-25] MEDS ORDERED: D5% in Water 1,000 ML IVC PRN (13:54)
[2022-01-25] MEDS ORDERED: Dextrose Gel 15 GM/37.5 ML TUBE PO PRN ×2 (13:54)
[2022-01-25] MEDS: Ringers Solution, Lactated 1,000 ML IVC SCH ×2 (14:17→21:11)
[2022-01-25] MEDS: Insulin LISPRO 300 UNITS/3 ML VIAL SUBQ SCH (16:24)
[2022-01-25] MEDS: Piperacillin/Tazobactam 3.375 GM in 0.9 % Sodium Chloride Mini Bag 100 ML IVPB SCH (21:10)
[2022-01-26] MEDS: Insulin LISPRO 300 UNITS/3 ML VIAL SUBQ SCH ×5 (00:16→23:12)
[2022-01-26 03:40] LABS: Basophils # 0.1 K/mcL (0.0-0.2); Basophils % 0.6 %; Eosinophils # 0.1 K/mcL (0.0-0.6); Eosinophils % 1.7 %; Hematocrit 36.5 % (37.5-50.1); Hemoglobin 11.5 g/dL (12.9-16.9); Immature Granulocytes % 0.5 % (0-4); Lymphocytes # 1.5 K/mcL (0.6-4.6); Mean Corpuscular HGB Conc 31.5 g/dL (31.6-35.5); Mean Corpuscular Volume 91.9 fL (83.0-100.0); Mean Platelet Volume 10.3 fL (9.4-12.4); Monocytes # 0.9 K/mcL (0.0-1.3); Monocytes % 11.1 %; Neutrophils # 5.4 K/mcL (1.6-8.9); Platelet Count 231 K/mcL (140-400); Red Blood Count 3.97 M/mcL (4.19-5.50); Red Cell Distribution Width 12.5 % (11.5-14.5); Segmented Neutrophils % 67.1 %
[2022-01-26] MEDS: Ringers Solution, Lactated 1,000 ML IVC SCH (04:56)
[2022-01-26] MEDS: Piperacillin/Tazobactam 3.375 GM in 0.9 % Sodium Chloride Mini Bag 100 ML IVPB SCH ×3 (04:57→21:08)
[2022-01-26] MEDS: Ketorolac 30 MG/ML VIAL IVP SCH ×3 (05:00→17:00)
[2022-01-26 06:15] LABS: Calcium 8.7 mg/dL (8.6-10.3); Magnesium 1.9 mg/dL (1.6-2.6); Phosphorous 3.8 mg/dL (2.7-4.5); Potassium 3.6 mEq/L (3.5-5.1)
[2022-01-26] MEDS ORDERED: clonazePAM 1 MG TABLET PO PRN (11:29)
[2022-01-26] MEDS: carvediloL 25 MG TABLET PO SCH ×2 (11:56→16:58)
[2022-01-26] MEDS: amLODIPine 5 MG TABLET PO SCH (11:56)
[2022-01-26] MEDS: Ascorbic Acid 500 MG TABLET PO SCH (11:56)
[2022-01-26] MEDS: Cyanocobalamin (B-12) 1,000 MCG TABLET PO SCH (11:57)
[2022-01-26] MEDS: *HR* Heparin 5,000 UNIT/ML VIAL SQ SCH ×2 (13:25→21:07)
[2022-01-26] MEDS: Pregabalin 50 MG CAPSULE PO SCH (21:07)
[2022-01-27] MEDS: Ketorolac 30 MG/ML VIAL IVP SCH ×2 (03:50→06:40)
[2022-01-27] MEDS: Piperacillin/Tazobactam 3.375 GM in 0.9 % Sodium Chloride Mini Bag 100 ML IVPB SCH (05:17)
[2022-01-27 06:08] LABS: Basophils # 0.1 K/mcL (0.0-0.2); Basophils % 0.9 %; Eosinophils # 0.1 K/mcL (0.0-0.6); Eosinophils % 1.9 %; Hematocrit 37.6 % (37.5-50.1); Immature Granulocytes % 0.3 % (0-4); Lymphocytes # 1.3 K/mcL (0.6-4.6); Lymphocytes % 19.7 %; Mean Corpuscular HGB Conc 31.9 g/dL (31.6-35.5); Mean Corpuscular Hemoglobin 28.2 pg (28.0-33.3); Mean Corpuscular Volume 88.5 fL (83.0-100.0); Mean Platelet Volume 9.8 fL (9.4-12.4); Monocytes # 0.6 K/mcL (0.0-1.3); Monocytes % 9.9 %; Neutrophils # 4.3 K/mcL (1.6-8.9); Platelet Count 296 K/mcL (140-400); Red Blood Count 4.25 M/mcL (4.19-5.50); Red Cell Distribution Width 12.3 % (11.5-14.5); Segmented Neutrophils % 67.3 %; White Blood Count 6.5 K/mcL (4.3-11.1)
[2022-01-27] MEDS: *HR* Heparin 5,000 UNIT/ML VIAL SQ SCH (06:17)
[2022-01-27] MEDS: Insulin LISPRO 300 UNITS/3 ML VIAL SUBQ SCH (06:18)
[2022-01-27 06:21] LABS: Calcium 8.9 mg/dL (8.6-10.3); Magnesium 1.9 mg/dL (1.6-2.6); Phosphorous 3.7 mg/dL (2.7-4.5); Potassium 3.7 mEq/L (3.5-5.1)
[2022-01-27] MEDS: Ascorbic Acid 500 MG TABLET PO SCH (07:57)
[2022-01-27] MEDS: Cyanocobalamin (B-12) 1,000 MCG TABLET PO SCH (07:57)
[2022-01-27] MEDS: amLODIPine 5 MG TABLET PO SCH (07:57)
[2022-01-27] MEDS: Pregabalin 50 MG CAPSULE PO SCH (07:57)
[2022-01-27] MEDS: carvediloL 25 MG TABLET PO SCH (07:57)
[2022-01-27 10:57] VITALS: BP 127/78; PULSE 88; TEMP 98.4; O2SAT 99
== END 2022-01-27 12:56 | disposition home or self-care (01) ==
LOC: 3BNU 09:46 → EMEROOARM 09:46 → 3BNU 15:30
PROVIDERS: ADMIT Hospitalist; ATTEND Hospitalist